=== PATIENT | female | born 1940 | race Caucasian/White ===

== ENCOUNTER 2017-12-19 23:02 | Inpatient (IN) | payer MEDICARE, MEDICAID ==
[2017-12-19 23:43] VITALS: BP 99/35
[2017-12-20] MEDS: INSULIN ASPART SLIDING SCALE 100 UNITS/ML UNIT SUBQ SCH ×4 (00:43→18:09)
[2017-12-20] MEDS: Albuterol/Ipratropium Neb 3 ML AERS HHN SCH ×4 (01:18→19:40)
[2017-12-20 06:14] LABS: % BASOPHILS 0.1 % (0.0-2.0); % EOSINOPHILS 0.1 % (0.0-5.0); % LYMPHOCYTES 8.6 % (20.0-50.0); % MONOCYTES 1.8 % (2.0-10.0); % NEUTROPHILS 89.4 % (40.0-80.0); HEMOGLOBIN 11.3 gm/dL (12-16); LYMPHOCYTE ABSOLUTE 0.5 Th/cmm (1.5-3.0); MEAN CELL VOLUME 84.9 fl (81-100); MEAN CORPUSCULAR HEMOGLOBIN 28.2 pg (27.0-31.0); MEAN CORPUSCULAR HGB CONC 33.3 pg (28.0-36.0); MEAN PLATELET VOLUME 9.4 fl; MONOCYTE ABSOLUTE 0.1 Th/cmm (0.3-1.0); PLATELET COUNT 134 Th/cmm (150-400); RED BLOOD COUNT 4.01 Mil/cmm (3.80-5.20); RED CELL DISTRIBUTION WIDTH 16.7 % (11.5-20.0); WHITE BLOOD COUNT 5.6 Th/cmm (4.8-10.8)
[2017-12-20 06:31] LABS: ALB/GLOB RATIO 1.2 (1.0-1.8); ALBUMIN 3.7 gm/dL (3.7-5.3); ALKALINE PHOSPHATASE 75 U/L (34-104); ANION GAP 11.6 (7.0-16.0); BILIRUBIN,TOTAL 0.5 mg/dL (0.3-1.0); BUN - UREA NITROGEN 21 mg/dL (7-25); CALCIUM SERUM 9.5 mg/dL (8.6-10.3); CARBON DIOXIDE 27.6 mEq/L (21.0-31.0); CHLORIDE 100 mEq/L (98-107); CHOLESTEROL 243 mg/dL (<200); GLUCOSE 302 mg/dL (70-105); HDL -HIGH DENSITY LIPOPROTEIN 45 mg/dL (23-92); POTASSIUM SERUM 4.2 mEq/L (3.5-5.1); SGOT 24 U/L (13-39); SGPT/ALT 23 U/L (7-52); SODIUM SERUM 135 mEq/L (136-145); TOTAL PROTEIN,SERUM 6.9 gm/dL (6.0-8.3); TRIGLYCERIDES 128 mg/dL (<150)
--- NOTE | 2017-12-20 08:44 | Diagnostic Imaging Report ---
CHEST X-RAY: AP view INDICATION: Pneumonia COMPARISON: None FINDINGS: Congestive changes are seen. There may be a small left effusion. Cardiomegaly is noted with atherosclerosis. Degenerative changes of the spine are noted. IMPRESSION: Congestive changes. Pneumonia of the mid to lower lungs is cannot be excluded. Cardiomegaly and atherosclerotic vascular disease.
[2017-12-20] MEDS ORDERED: Albuterol Nebulizer 2.5mg/3mL HHN PRN (10:00)
[2017-12-20] MEDS: Hydrocodone/APAP 10 mg/325 mg Tab PO PRN (11:12)
[2017-12-20] MEDS ORDERED: Insulin Detemir 100 units/mL 10mL Vial SUBQ SCH (11:30)
[2017-12-20] MEDS: Lactulose 10 Gm/15 mL 30mL UDC PO PRN (12:14)
[2017-12-20] MEDS: Pantoprazole 40 mg EC Tab PO SCH (16:16)
--- NOTE | 2017-12-20 16:58 | Internal Medicine Prog Note ---
Internal Medicine Objective - Results Result Diagrams: 12/20/17 05:42 12/20/17 05:42 Recent Labs: Laboratory Last Values WBC 5.6 Th/cmm (4.8-10.8) 12/20/17 05:42 RBC 4.01 Mil/cmm (3.80-5.20) 12/20/17 05:42 Hgb 11.3 gm/dL (12-16) L 12/20/17 05:42 Hct 34.0 % (41.0-60) L 12/20/17 05:42 MCV 84.9 fl (81-100) 12/20/17 05:42 MCH 28.2 pg (27.0-31.0) 12/20/17 05:42 MCHC Differential 33.3 pg (28.0-36.0) 12/20/17 05:42 RDW 16.7 % (11.5-20.0) 12/20/17 05:42 Plt Count 134 Th/cmm (150-400) L 12/20/17 05:42 MPV 9.4 fl 12/20/17 05:42 Neutrophils % 89.4 % (40.0-80.0) H 12/20/17 05:42 Lymphocytes % 8.6 % (20.0-50.0) L 12/20/17 05:42 Monocytes % 1.8 % (2.0-10.0) L 12/20/17 05:42 Eosinophils % 0.1 % (0.0-5.0) 12/20/17 05:42 Basophils % 0.1 % (0.0-2.0) 12/20/17 05:42 Sodium 135 mEq/L (136-145) L 12/20/17 05:42 Potassium 4.2 mEq/L (3.5-5.1) 12/20/17 05:42 Chloride 100 mEq/L (98-107) 12/20/17 05:42 Carbon Dioxide 27.6 mEq/L (21.0-31.0) 12/20/17 05:42 Anion Gap 11.6 (7.0-16.0) 12/20/17 05:42 BUN 21 mg/dL (7-25) 12/20/17 05:42 Creatinine 1.0 mg/dL (0.6-1.2) 12/20/17 05:42 Est GFR ( Amer) TNP 12/20/17 05:42 Est GFR (Non-Af Amer) TNP 12/20/17 05:42 BUN/Creatinine Ratio 21.0 12/20/17 05:42 Glucose 302 mg/dL (70-105) H 12/20/17 05:42 POC Glucose 248 MG/DL (70 - 105) H 12/20/17 16:15 Calcium 9.5 mg/dL (8.6-10.3) 12/20/17 05:42 Total Bilirubin 0.5 mg/dL (0.3-1.0) 12/20/17 05:42 AST 24 U/L (13-39) 12/20/17 05:42 ALT 23 U/L (7-52) 12/20/17 05:42 Alkaline Phosphatase 75 U/L (34-104) 12/20/17 05:42 B-Natriuretic Peptide 399.0 pg/mL (5.0-100.0) H 12/20/17 05:42 Total Protein 6.9 gm/dL (6.0-8.3) 12/20/17 05:42 Albumin 3.7 gm/dL (3.7-5.3) 12/20/17 05:42 Globulin 3.2 gm/dL 12/20/17 05:42 Albumin/Globulin Ratio 1.2 (1.0-1.8) 12/20/17 05:42 Triglycerides 128 mg/dL (<150) 12/20/17 05:42 Cholesterol 243 mg/dL (<200) H 12/20/17 05:42 LDL Cholesterol Direct 160 mg/dL (75-193) 12/20/17 05:42 HDL Cholesterol 45 mg/dL (23-92) 12/20/17 05:42 - Physical Exam Vitals and I&O: Vital Signs Temp 97.7 F 12/20/17 16:00 Pulse 82 12/20/17 16:00 Resp 17 12/20/17 16:52 BP 116/62 12/20/17 16:00 Pulse Ox 96 12/20/17 16:00 Intake & Output 12/19/17 12/20/17 12/20/17 18:59 06:59 18:59 Weight (lbs) 105.687 kg Active Medications: Current Medications Acetaminophen (Tylenol) 650 mg PO Q4H PRN PRN Reason: Pain (Mild) Stop: 02/18/18 08:49 Acetaminophen/Hydrocodone Bitart ([place] 10 Mg/325 Mg) 1 tab PO Q6HR PRN PRN Reason: Pain (Moderate) Stop: 02/18/18 09:55 Last Admin: 12/20/17 11:12 Dose: 1 tab Albuterol Sulfate (Albuterol 2.5mg/3ml Neb Ud) 2.5 mg HHN DAILYRT PRN PRN Reason: wheezing Stop: 02/18/18 09:59 Albuterol/Ipratropium (Duoneb Neb) 3 ml HHN Q6HRT MARIO Stop: 02/18/18 00:59 Last Admin: 12/20/17 12:22 Dose: 3 ml Amiodarone HCl (Cordarone) 100 mg PO DAILY MARIO Stop: 02/19/18 08:59 Artificial Tears (Artificial Tears Ophth Soln) 1 drop EACH EYE DAILY MARIO Stop: 02/19/18 08:59 Aspirin (Ecotrin) 81 mg PO DAILY MARIO Stop: 02/19/18 08:59 Bisacodyl (Dulcolax 5 Mg Ec Tab) 5 mg PO DAILY MARIO Stop: 02/19/18 08:59 Docusate Sodium (Colace) 100 mg PO BID PRN PRN Reason: Constipation Stop: 02/18/18 09:55 Furosemide (Lasix) 40 mg PO DAILY MARIO Stop: 02/19/18 08:59 Gabapentin (Neurontin) 1,200 mg PO TID MARIO Stop: 02/18/18 13:59 Last Admin: 12/20/17 13:27 Dose: 1,200 mg Insulin Aspart (Novolog Insulin Sliding Scale) 0 units SUBQ Q6HR MARIO PRN Reason: Protocol Stop: 02/18/18 00:00 Last Admin: 12/20/17 12:39 Dose: 8 units Insulin Detemir (Levemir Insulin) units SUBQ ACHS MARIO PRN Reason: Protocol Stop: 02/18/18 11:29 Lactulose (Cephulac) 20 gm PO DAILY PRN PRN Reason: Constipation Stop: 02/18/18 09:55 Last Admin: 12/20/17 12:14 Dose: 20 gm Levothyroxine Sodium (Synthroid) 0.125 mg PO QDAC [facility] Stop: 02/19/18 07:29 Metformin HCl (Glucophage) 1,000 mg PO BID MARIO Stop: 02/18/18 16:59 Last Admin: 12/20/17 16:16 Dose: 1,000 mg Miscellaneous (Clonazepam [Klonopin]) 1 tab PO HS MARIO Stop: 02/18/18 20:59 Miscellaneous (Glipizide [Glucotrol]) 1 tab PO BID MARIO Stop: 02/18/18 16:59 Last Admin: 12/20/17 16:16 Dose: Not Given Pantoprazole Sodium (Protonix) 40 mg PO BID MARIO Stop: 02/18/18 16:59 Last Admin: 12/20/17 16:16 Dose: 40 mg Potassium Chloride (Klor-Con) 20 meq PO DAILY [facility] Stop: 02/19/18 08:59 Sitagliptin Phosphate (Januvia) 50 mg PO BID [facility] Stop: 02/18/18 16:59 Last Admin: 12/20/17 16:16 Dose: 50 mg Tramadol HCl (Ultram) 50 mg PO TID [facility] Stop: 02/18/18 13:59 Last Admin: 12/20/17 13:26 Dose: 50 mg Nutritional Asmnt/Malnutr-PDOC - Dietary Evaluation Malnutrition Findings (Please click <Entered> for more info): Nutritional Asmnt/Malnutrition Start: 12/20/17 15: 31 Text: Status: Complete Freq: Document 12/20/17 15:31 LCHENG (Rec: 12/20/17 15:43 [email or web address]) Nutritional Asmnt/Malnutrition Patient General Information Nutritional Screening High Risk Diagnosis PNA Pertinent Medical Hx/Surgical Hx no H&P, not able to obtain Subjective Information BS 302 at admitting noted. pt seen lying in bed with lunch tray in her front. Pt is Maori speaking. Per RN, pt consumed <25% of lunch and refused to eat, complaining stomach pain. PO intake 50% of breakfast this morning. Pt is on insulin noted. Current Diet Order/ Nutrition Support low sodium 2gm Pertinent Medications lasix, novolog, levemir, synthroid, glucophage, protonix, kcal Pertinent Labs 12/20 Na 135, Glucose 302, POC 277-346 12/19 POC 295 Nutritional Hx/Data Height 1.47 m Height (Calculated Centimeters) 147.3 Current Weight (lbs) 105.687 kg Weight (Calculated Kilograms) 105.7 Weight (Calculated Grams) 972204.0 [place] Body Weight 96 Body Mass Index (BMI) 48.6 Weight Status Obese GI Symptoms GI Symptoms None Last BM no record Difficult in: None Skin Integrity/Comment: intact Current %PO Poor (25-49%) Estimated Nutritional Goals BEE in Kcals: Adj wt of IBW Calories/Kcals/Kg 30-35 Kcals Calculated 2934-9493 Protein: Adj wt of IBW Protein g/k-1.2 Protein Calculated 59-71 Fluid: ml 1770-2065ml (1ml/kcal) Nutritional Problem 1. Problem Problem altered nutrition related labs Etiology endocrine dysfunction Signs/Symptoms: Glucose 302, POC 277-346 Malnutrition Alert Protein-Calorie Malnutrition N/A Is there a minimum of two criteria No selected? Query Text:Check all the applicable criteria. A minimum of two criteria are recommended for diagnosis of either severe or non-severe malnutrition. Intervention/Recommendation Comments 1. Recommend adding CCHO-60gm diet d/t hyperglycemia and on insulin. RN notified, will talk to MD. 2. Monitor PO intake, wt, labs and skin integrity 3. F/U as high risk in 2-3 days, 12/22-12/23 Expected Outcomes/Goals Expected Outcomes/Goals 1. PO intake to meet at least 75% of nutritional needs. 2. Wt stability, skin to remain intact, labs to approach WNL.
[2017-12-20] MEDS ORDERED: GLIPIZIDE PO SCH (17:00)
[2017-12-20] MEDS ORDERED: [UNRECOGNIZED DRUG - OTHER] PO SCH (17:00)
[2017-12-20] MEDS ORDERED: SITAGLIPTIN PHOS PO SCH (17:00)
[2017-12-20] MEDS ORDERED: METFORMIN HCL PO SCH (17:00)
--- NOTE | 2017-12-20 19:37 | Consultation ---
DATE OF CONSULTATION: 12/20/2017 PATIENT OF: Dr. Camarillo. HISTORY AND PHYSICAL: This is a 77-year-old morbidly obese female patient, recently had been complaining of shortness of breath, cough with expectoration. The patient was seen in the Emergency Room at [facility]. The patient was found to have pneumonia. The patient also had slightly elevated troponin level. Following this, the patient was transferred to [facility] due to insurance reasons. PAST MEDICAL HISTORY: Hypertension, obstructive sleep apnea, angina, lumbosacral radiculopathy, diabetes mellitus type 2, diabetic CKD stage II, osteoporosis, and morbid obesity. FAMILY HISTORY: Unremarkable. SOCIAL HISTORY: No history of smoking, alcohol abuse. ALLERGIES: No known allergies. PHYSICAL EXAMINATION: VITAL SIGNS: Blood pressure 130/70, pulse 70, and respirations 20. HEAD: Normocephalic. No lumps or bumps. EYES: Pupils are equal and reactive to light. Fundi show AV nicking. Sclerae white. Conjunctivae pink. NECK: Carotid 2+. Normal upstroke. JVD flat. Thyroid not palpable. Lymph nodes not palpable. CHEST: Shows increased AP diameter. No kyphosis or scoliosis. LUNGS: Bilateral bronchovesicular breath sounds. Bilateral wheezing, rhonchi, prolonged expiration. HEART: PMI fifth intercostal space with lateral to midclavicular line. S1 and S2. No S3. Soft S4. Soft systolic murmur. ABDOMEN: Soft. Liver and spleen not palpable. Morbid obesity, no organomegaly. EXTREMITIES: Peripheral pulses 1+. No pedal edema. CLINICAL IMPRESSION: Pneumonia; acute respiratory failure, on BiPAP; hypertension; obstructive sleep apnea; angina; lumbosacral radiculopathy; diabetes mellitus type 2; diabetic CKD stage II; morbid obesity; and osteoporosis. PLAN: We will get troponin level, EKG, and echocardiogram. IV antibiotics and monitor the patient. [facility]# [id number]
[2017-12-20 19:52] LABS: A1C % 7.9 % (4.0-6.0)
[2017-12-20 20:47] LABS: % BASOPHILS 1.1 % (0.0-2.0); % EOSINOPHILS 0.1 % (0.0-5.0); % LYMPHOCYTES 13.5 % (20.0-50.0); % MONOCYTES 5.9 % (2.0-10.0); % NEUTROPHILS 79.4 % (40.0-80.0); BASOPHILE ABSOLUTE 0.1 Th/cumm (0-0.2); HEMATOCRIT 35.2 % (41.0-60); HEMOGLOBIN 11.6 gm/dL (12-16); MEAN CELL VOLUME 85.6 fl (81-100); MEAN CORPUSCULAR HEMOGLOBIN 28.1 pg (27.0-31.0); MEAN CORPUSCULAR HGB CONC 32.8 pg (28.0-36.0); MEAN PLATELET VOLUME 9.3 fl; MONOCYTE ABSOLUTE 0.4 Th/cmm (0.3-1.0); PLATELET COUNT 145 Th/cmm (150-400); RED BLOOD COUNT 4.12 Mil/cmm (3.80-5.20); RED CELL DISTRIBUTION WIDTH 16.5 % (11.5-20.0)
[2017-12-20 20:50] LABS: WHITE BLOOD COUNT 7.5 Th/cmm (4.8-10.8)
[2017-12-20 20:57] LABS: ANION GAP 7.9 (7.0-16.0); BUN - UREA NITROGEN 22 mg/dL (7-25); CALCIUM SERUM 9.8 mg/dL (8.6-10.3); CARBON DIOXIDE 28.8 mEq/L (21.0-31.0); CHLORIDE 102 mEq/L (98-107); CHOLESTEROL 249 mg/dL (<200); CREATININE - SERUM 0.9 mg/dL (0.6-1.2); HDL -HIGH DENSITY LIPOPROTEIN 48 mg/dL (23-92); POTASSIUM SERUM 3.7 mEq/L (3.5-5.1); SODIUM SERUM 135 mEq/L (136-145); TRIGLYCERIDES 137 mg/dL (<150)
[2017-12-20 21:16] LABS: GLUCOSE 191 mg/dL (70-105)
[2017-12-20] MEDS ORDERED: Albuterol/Ipratropium Neb 3 ML AERS HHN PRN (21:49)
[2017-12-21] MEDS: Guaifenesin DM 10 ML UDC PO PRN ×2 (00:52→09:27)
[2017-12-21] MEDS: INSULIN ASPART SLIDING SCALE 100 UNITS/ML UNIT SUBQ SCH ×4 (00:53→17:53)
[2017-12-21] MEDS ORDERED: Piperacillin Sodium/Tazobact 3.375 gm Vial IV ONE (00:56)
[2017-12-21] MEDS: Albuterol/Ipratropium Neb 3 ML AERS HHN SCH ×4 (01:15→19:29)
--- NOTE | 2017-12-21 08:57 | General Progress Note ---
Subjective - Review of Systems Events since last encounter: patient with cough + sob pneumonia Objective - Results Result Diagrams: 12/20/17 20:21 12/20/17 20:21 Recent Labs: Laboratory Last Values WBC 7.5 Th/cmm (4.8-10.8) D 12/20/17 20:21 RBC 4.12 Mil/cmm (3.80-5.20) 12/20/17 20:21 Hgb 11.6 gm/dL (12-16) L 12/20/17 20:21 Hct 35.2 % (41.0-60) L 12/20/17 20:21 MCV 85.6 fl (81-100) 12/20/17 20: MCH 28.1 pg (27.0-31.0) 12/20/17 20: MCHC Differential 32.8 pg (28.0-36.0) 12/20/17 20: RDW 16.5 % (11.5-20.0) 12/20/17 20: Plt Count 145 Th/cmm (150-400) L 12/20/17 20:21 MPV 9.3 fl 12/20/17 20:21 Neutrophils % 79.4 % (40.0-80.0) 12/20/17 20:21 Lymphocytes % 13.5 % (20.0-50.0) L 12/20/17 20: Monocytes % 5.9 % (2.0-10.0) 12/20/17 20:21 Eosinophils % 0.1 % (0.0-5.0) 12/20/17 20: Basophils % 1.1 % (0.0-2.0) 12/20/17 20:21 Sodium 135 mEq/L (136-145) L 12/20/17 20:21 Potassium 3.7 mEq/L (3.5-5.1) 12/20/17 20:21 Chloride 102 mEq/L (98-107) 12/20/17 20:21 Carbon Dioxide 28.8 mEq/L (21.0-31.0) 12/20/17 20:21 Anion Gap 7.9 (7.0-16.0) 12/20/17 20:21 BUN 22 mg/dL (7-25) 12/20/17 20:21 Creatinine 0.9 mg/dL (0.6-1.2) 12/20/17 20:21 Est GFR ( Amer) TNP 12/20/17 20:21 Est GFR (Non-Af Amer) TNP 12/20/17 20:21 BUN/Creatinine Ratio 24.4 12/20/17 20:21 Glucose 191 mg/dL (70-105) H D 12/20/17 20:21 POC Glucose 159 MG/DL (70 - 105) H 12/21/17 00:42 Hemoglobin A1c % 7.9 % (4.0-6.0) H 12/20/17 05:42 Calcium 9.8 mg/dL (8.6-10.3) 12/20/17 20:21 Total Bilirubin 0.5 mg/dL (0.3-1.0) 12/20/17 05:42 AST 24 U/L (13-39) 12/20/17 05:42 ALT 23 U/L (7-52) 12/20/17 05:42 Alkaline Phosphatase 75 U/L (34-104) 12/20/17 05:42 B-Natriuretic Peptide 558.0 pg/mL (5.0-100.0) H 12/21/17 06:02 Total Protein 6.9 gm/dL (6.0-8.3) 12/20/17 05:42 Albumin 3.7 gm/dL (3.7-5.3) 12/20/17 05:42 Globulin 3.2 gm/dL 12/20/17 05:42 Albumin/Globulin Ratio 1.2 (1.0-1.8) 12/20/17 05:42 Triglycerides 137 mg/dL (<150) 12/20/17 20:21 Cholesterol 249 mg/dL (<200) H 12/20/17 20:21 LDL Cholesterol Direct 174 mg/dL (75-193) 12/20/17 20:21 HDL Cholesterol 48 mg/dL (23-92) 12/20/17 20:21 TSH 6.80 uIU/ml (0.34-5.60) H 12/20/17 20:21 - Physical Exam Vitals and I&O: Vital Signs Temp 97.3 F 12/21/17 00:00 Pulse 83 12/21/17 07:25 Resp 22 12/21/17 07:25 BP 114/59 12/21/17 00:00 Pulse Ox 98 12/21/17 07:25 Intake & Output 12/20/17 12/21/17 12/21/17 18:59 06:59 18:59 Intake Total 550 Balance 550 Weight (lbs) 105.687 kg Intake: Oral 550 Other: # Voids 3 # Bowel Movements 0 Active Medications: Current Medications Acetaminophen (Tylenol) 650 mg PO Q4H PRN PRN Reason: Pain (Mild) Stop: 02/18/18 08:49 Last Admin: 12/21/17 06:52 Dose: 650 mg Acetaminophen/Hydrocodone Bitart ([place] 10 Mg/325 Mg) 1 tab PO Q6HR PRN PRN Reason: Pain (Moderate) Stop: 02/18/18 09:55 Last Admin: 12/20/17 11:12 Dose: 1 tab Albuterol Sulfate (Albuterol 2.5mg/3ml Neb Ud) 2.5 mg HHN DAILYRT PRN PRN Reason: wheezing Stop: 02/18/18 09:59 Albuterol/Ipratropium (Duoneb Neb) 3 ml HHN Q6HRT MARIO Stop: 02/18/18 00:59 Last Admin: 12/21/17 07:23 Dose: 3 ml Albuterol/Ipratropium (Duoneb Neb) 3 ml HHN Q2H PRN PRN Reason: Wheezing Stop: 02/18/18 21:48 Amiodarone HCl (Cordarone) 100 mg PO DAILY MARIO Stop: 02/19/18 08:59 Artificial Tears (Artificial Tears Ophth Soln) 1 drop EACH EYE DAILY [facility]IO Stop: 02/19/18 08:59 Aspirin (Ecotrin) 81 mg PO DAILY [facility] Stop: 02/19/18 08:59 Bisacodyl (Dulcolax 5 Mg Ec Tab) 5 mg PO DAILY [facility]IO Stop: 02/19/18 08:59 Clonazepam (Klonopin) 2 mg PO HS MARIO Stop: 02/18/18 20:59 Docusate Sodium (Colace) 100 mg PO BID PRN PRN Reason: Constipation Stop: 02/18/18 09:55 Furosemide (Lasix) 40 mg PO DAILY MARIO Stop: 02/19/18 08:59 Gabapentin (Neurontin) 1,200 mg PO TID MARIO Stop: 02/18/18 13:59 Last Admin: 12/20/17 22:45 Dose: 1,200 mg Glipizide (Glucotrol) 10 mg PO BIDAC [facility] Stop: 02/18/18 16:59 Guaifenesin/Dextromethorphan (Robitussin Dm) 10 ml PO TID PRN PRN Reason: Cough Stop: 02/18/18 21:49 Last Admin: 12/21/17 00:52 Dose: 10 ml Insulin Aspart (Novolog Insulin Sliding Scale) 0 units SUBQ Q6HR MARIO PRN Reason: Protocol Stop: 02/18/18 00:00 Last Admin: 12/21/17 06:54 Dose: 2 units Insulin Detemir (Levemir Insulin) units SUBQ ACHS MARIO PRN Reason: Protocol Stop: 02/18/18 11:29 Lactulose (Cephulac) 20 gm PO DAILY PRN PRN Reason: Constipation Stop: 02/18/18 09:55 Last Admin: 12/20/17 12:14 Dose: 20 gm Levothyroxine Sodium (Synthroid) 0.125 mg PO QDAC [facility] Stop: 02/19/18 07:29 Metformin HCl (Glucophage) 1,000 mg PO BID [facility] Stop: 02/18/18 16:59 Last Admin: 12/20/17 16:16 Dose: 1,000 mg Miscellaneous (Vancomycin Iv Per Pharmacy) 1 ea MC PRN PRN PRN Reason: PROTOCOL Stop: 02/19/18 05:32 Pantoprazole Sodium (Protonix) 40 mg PO BID [facility] Stop: 02/18/18 16:59 Last Admin: 12/20/17 16:16 Dose: 40 mg Potassium Chloride (Klor-Con) 20 meq PO DAILY [facility] Stop: 02/19/18 08:59 Sitagliptin Phosphate (Januvia) 50 mg PO BID [facility] Stop: 02/18/18 16:59 Last Admin: 12/20/17 16:16 Dose: 50 mg Tramadol HCl (Ultram) 50 mg PO TID [facility] Stop: 02/18/18 13:59 Last Admin: 12/20/17 22:45 Dose: 50 mg - Procedures Procedures: Procedures Procedure Code Date ASSISTANCE WITH RESPIRATORY VENTILATION, <24 HRS, CPAP [id number] 12/19/17 POS AIRWAY PRESSURE CPAP 91385 12/19/17 Nutritional Asmnt/Malnutr-PDOC - Dietary Evaluation Malnutrition Findings (Please click <Entered> for more info): Nutritional Asmnt/Malnutrition Start: 12/20/17 15: 31 Text: Status: Complete Freq: Document 12/20/17 15:31 [email or web address] (Rec: 12/20/17 15:43 [email or web address]) Nutritional Asmnt/Malnutrition Patient General Information Nutritional Screening High Risk Diagnosis PNA Pertinent Medical Hx/Surgical Hx no H&P, not able to obtain Subjective Information BS 302 at admitting noted. pt seen lying in bed with lunch tray in her front. Pt is Dive[place] speaking. Per RN, pt consumed <25% of lunch and refused to eat, complaining stomach pain. PO intake 50% of breakfast this morning. Pt is on insulin noted. Current Diet Order/ Nutrition Support low sodium 2gm Pertinent Medications lasix, novolog, levemir, synthroid, glucophage, protonix, kcal Pertinent Labs 12/20 Na 135, Glucose 302, POC 277-346 12/19 POC 295 Nutritional Hx/Data Height 1.47 m Height (Calculated Centimeters) 147.3 Current Weight (lbs) 105.687 kg Weight (Calculated Kilograms) 105.7 Weight (Calculated Grams) 899121.0 [place] Body Weight 96 Body Mass Index (BMI) 48.6 Weight Status Obese GI Symptoms GI Symptoms None Last BM no record Difficult in: None Skin Integrity/Comment: intact Current %PO Poor (25-49%) Estimated Nutritional Goals BEE in Kcals: Adj wt of IBW Calories/Kcals/Kg 30-35 Kcals Calculated 5624-7913 Protein: Adj wt of IBW Protein g/k-1.2 Protein Calculated 59-71 Fluid: ml 1770-2065ml (1ml/kcal) Nutritional Problem 1. Problem Problem altered nutrition related labs Etiology endocrine dysfunction Signs/Symptoms: Glucose 302, POC 277-346 Malnutrition Alert Protein-Calorie Malnutrition N/A Is there a minimum of two criteria No selected? Query Text:Check all the applicable criteria. A minimum of two criteria are recommended for diagnosis of either severe or non-severe malnutrition. Intervention/Recommendation Comments 1. Recommend adding CCHO-60gm diet d/t hyperglycemia and on insulin. RN notified, will talk to . 2. Monitor PO intake, wt, labs and skin integrity 3. F/U as high risk in 2-3 days, 12/22-12/23 Expected Outcomes/Goals Expected Outcomes/Goals 1. PO intake to meet at least 75% of nutritional needs. 2. Wt stability, skin to remain intact, labs to approach WNL.
[2017-12-21 09:02] LABS: % BASOPHILS 0.1 % (0.0-2.0); % EOSINOPHILS 0.5 % (0.0-5.0); % LYMPHOCYTES 16.3 % (20.0-50.0); % MONOCYTES 5.7 % (2.0-10.0); % NEUTROPHILS 77.4 % (40.0-80.0); HEMATOCRIT 33.8 % (41.0-60); LYMPHOCYTE ABSOLUTE 1.2 Th/cmm (1.5-3.0); MEAN CELL VOLUME 85.1 fl (81-100); MEAN CORPUSCULAR HEMOGLOBIN 27.6 pg (27.0-31.0); MEAN CORPUSCULAR HGB CONC 32.4 pg (28.0-36.0); MEAN PLATELET VOLUME 10.2 fl; MONOCYTE ABSOLUTE 0.4 Th/cmm (0.3-1.0); NEUTROPHILE ABSOLUTE 5.7 Th/cmm (1.8-8.0); PLATELET COUNT 147 Th/cmm (150-400); RED BLOOD COUNT 3.97 Mil/cmm (3.80-5.20); RED CELL DISTRIBUTION WIDTH 16.8 % (11.5-20.0); WHITE BLOOD COUNT 7.3 Th/cmm (4.8-10.8)
[2017-12-21 09:14] LABS: BUN - UREA NITROGEN 23 mg/dL (7-25); CALCIUM SERUM 9.7 mg/dL (8.6-10.3); CARBON DIOXIDE 28.1 mEq/L (21.0-31.0); CHLORIDE 101 mEq/L (98-107); GLUCOSE 150 mg/dL (70-105); POTASSIUM SERUM 4.1 mEq/L (3.5-5.1); SODIUM SERUM 139 mEq/L (136-145)
[2017-12-21] MEDS: Pantoprazole 40 mg EC Tab PO SCH ×2 (09:21→16:22)
[2017-12-21] MEDS: Potassium Chloride 20 mEq ER Tab PO SCH (09:21)
[2017-12-21] MEDS: Polyvinyl Alcohol Ophth Soln 15 mL Bottle EACH EYE SCH (09:28)
[2017-12-21] MEDS: Levothyroxine 0.125 Mg Tab PO SCH (11:00)
[2017-12-21] MEDS: Hydrocodone/APAP 10 mg/325 mg Tab PO PRN (12:50)
[2017-12-21] MEDS: Lactulose 10 Gm/15 mL 30mL UDC PO PRN (12:50)
--- NOTE | 2017-12-21 13:59 | Internal Medicine Prog Note ---
Internal Medicine Subjective - Subjective Service Date: 12/21/17 ([id number] [facility] dictated) Internal Medicine Objective - Results Result Diagrams: 12/21/17 06:02 12/21/17 06:02 Recent Labs: Laboratory Last Values WBC 7.3 Th/cmm (4.8-10.8) 12/21/17 06:02 RBC 3.97 Mil/cmm (3.80-5.20) 12/21/17 06:02 Hgb 11.0 gm/dL (12-16) L 12/21/17 06:02 Hct 33.8 % (41.0-60) L 12/21/17 06:02 MCV 85.1 fl (81-100) 12/21/17 06:02 MCH 27.6 pg (27.0-31.0) 12/21/17 06:02 MCHC Differential 32.4 pg (28.0-36.0) 12/21/17 06:02 RDW 16.8 % (11.5-20.0) 12/21/17 06:02 Plt Count 147 Th/cmm (150-400) L 12/21/17 06:02 MPV 10.2 fl 12/21/17 06:02 Neutrophils % 77.4 % (40.0-80.0) 12/21/17 06:02 Lymphocytes % 16.3 % (20.0-50.0) L 12/21/17 06:02 Monocytes % 5.7 % (2.0-10.0) 12/21/17 06:02 Eosinophils % 0.5 % (0.0-5.0) 12/21/17 06:02 Basophils % 0.1 % (0.0-2.0) 12/21/17 06:02 Sodium 139 mEq/L (136-145) 12/21/17 06:02 Potassium 4.1 mEq/L (3.5-5.1) 12/21/17 06:02 Chloride 101 mEq/L (98-107) 12/21/17 06:02 Carbon Dioxide 28.1 mEq/L (21.0-31.0) 12/21/17 06:02 Anion Gap 14.0 (7.0-16.0) 12/21/17 06:02 BUN 23 mg/dL (7-25) 12/21/17 06:02 Creatinine 1.0 mg/dL (0.6-1.2) 12/21/17 06:02 Est GFR ( Amer) TNP 12/21/17 06:02 Est GFR (Non-Af Amer) TNP 12/21/17 06:02 BUN/Creatinine Ratio 23.0 12/21/17 06:02 Glucose 150 mg/dL (70-105) H 12/21/17 06:02 POC Glucose 241 MG/DL (70 - 105) H 12/21/17 11:01 Hemoglobin A1c % 7.9 % (4.0-6.0) H 12/20/17 05:42 Calcium 9.7 mg/dL (8.6-10.3) 12/21/17 06:02 Total Bilirubin 0.5 mg/dL (0.3-1.0) 12/20/17 05:42 AST 24 U/L (13-39) 12/20/17 05:42 ALT 23 U/L (7-52) 12/20/17 05:42 Alkaline Phosphatase 75 U/L (34-104) 12/20/17 05:42 Troponin I 0.08 ng/mL (0.01-0.05) H* 12/21/17 06:02 B-Natriuretic Peptide 558.0 pg/mL (5.0-100.0) H 12/21/17 06:02 Total Protein 6.9 gm/dL (6.0-8.3) 12/20/17 05:42 Albumin 3.7 gm/dL (3.7-5.3) 12/20/17 05:42 Globulin 3.2 gm/dL 12/20/17 05:42 Albumin/Globulin Ratio 1.2 (1.0-1.8) 12/20/17 05:42 Triglycerides 137 mg/dL (<150) 12/20/17 20:21 Cholesterol 249 mg/dL (<200) H 12/20/17 20:21 LDL Cholesterol Direct 174 mg/dL (75-193) 12/20/17 20:21 HDL Cholesterol 48 mg/dL (23-92) 12/20/17 20:21 TSH 6.80 uIU/ml (0.34-5.60) H 12/20/17 20:21 - Physical Exam Vitals and I&O: Vital Signs Temp 98.7 F 12/21/17 11:57 Pulse 84 12/21/17 13:20 Resp 20 12/21/17 13:20 BP 115/63 12/21/17 11:57 Pulse Ox 97 12/21/17 13:20 Intake & Output 12/20/17 12/21/17 12/21/17 18:59 06:59 18:59 Intake Total 550 Balance 550 Weight (lbs) 233 lb Intake: Oral 550 Other: # Voids 3 # Bowel Movements 0 Active Medications: Current Medications Acetaminophen (Tylenol) 650 mg PO Q4H PRN PRN Reason: Pain (Mild) Stop: 02/18/18 08:49 Last Admin: 12/21/17 06:52 Dose: 650 mg Acetaminophen/Hydrocodone Bitart ([place] 10 Mg/325 Mg) 1 tab PO Q6HR PRN PRN Reason: Pain (Moderate) Stop: 02/18/18 09:55 Last Admin: 12/21/17 12:50 Dose: 1 tab Albuterol Sulfate (Albuterol 2.5mg/3ml Neb Ud) 2.5 mg HHN DAILYRT PRN PRN Reason: wheezing Stop: 02/18/18 09:59 Albuterol/Ipratropium (Duoneb Neb) 3 ml HHN Q6HRT [facility] Stop: 02/18/18 00:59 Last Admin: 12/21/17 13:19 Dose: 3 ml Albuterol/Ipratropium (Duoneb Neb) 3 ml HHN Q2H PRN PRN Reason: Wheezing Stop: 02/18/18 21:48 Amiodarone HCl (Cordarone) 100 mg PO DAILY [facility] Stop: 02/19/18 08:59 Last Admin: 12/21/17 09:21 Dose: 100 mg Artificial Tears (Artificial Tears Ophth Soln) 1 drop EACH EYE DAILY [facility] Stop: 02/19/18 08:59 Last Admin: 12/21/17 09:28 Dose: 1 drop Aspirin (Ecotrin) 81 mg PO DAILY [facility] Stop: 02/19/18 08:59 Last Admin: 12/21/17 09:20 Dose: 81 mg Bisacodyl (Dulcolax 5 Mg Ec Tab) 5 mg PO DAILY [facility] Stop: 02/19/18 08:59 Last Admin: 12/21/17 09:21 Dose: 5 mg Clonazepam (Klonopin) 2 mg PO HS [facility] Stop: 02/18/18 20:59 Docusate Sodium (Colace) 100 mg PO BID PRN PRN Reason: Constipation Stop: 02/18/18 09:55 Furosemide (Lasix) 40 mg PO DAILY [facility] Stop: 02/19/18 08:59 Last Admin: 12/21/17 09:20 Dose: 40 mg Gabapentin (Neurontin) 1,200 mg PO TID [facility] Stop: 02/18/18 13:59 Last Admin: 12/21/17 09:20 Dose: 1,200 mg Glipizide (Glucotrol) 10 mg PO BIDAC [facility] Stop: 02/18/18 16:59 Last Admin: 12/21/17 08:00 Dose: 10 mg Guaifenesin/Dextromethorphan (Robitussin Dm) 10 ml PO TID PRN PRN Reason: Cough Stop: 02/18/18 21:49 Last Admin: 12/21/17 09:27 Dose: 10 ml Vancomycin HCl 1 gm/ Sodium (Chloride) 250 mls @ 165 mls/hr IV Q12H [facility] Stop: 02/19/18 11:59 Last Admin: 12/21/17 12:42 Dose: 165 mls/hr Insulin Aspart (Novolog Insulin Sliding Scale) 0 units SUBQ Q6HR [facility] PRN Reason: Protocol Stop: 02/18/18 00:00 Last Admin: 12/21/17 12:48 Dose: 4 units Insulin Detemir (Levemir Insulin) units SUBQ ACHS [facility] PRN Reason: Protocol Stop: 02/18/18 11:29 Lactulose (Cephulac) 20 gm PO DAILY PRN PRN Reason: Constipation Stop: 02/18/18 09:55 Last Admin: 12/21/17 12:50 Dose: 20 gm Levothyroxine Sodium (Synthroid) 0.125 mg PO QDAC [facility] Stop: 02/19/18 07:29 Last Admin: 12/21/17 11:00 Dose: Not Given Metformin HCl (Glucophage) 1,000 mg PO BID [facility] Stop: 02/18/18 16:59 Last Admin: 12/21/17 09:20 Dose: 1,000 mg Miscellaneous (Vancomycin Iv Per Pharmacy) 1 ea [facility] PRN PRN PRN Reason: PROTOCOL Stop: 02/19/18 05:32 Pantoprazole Sodium (Protonix) 40 mg PO BID [facility] Stop: 02/18/18 16:59 Last Admin: 12/21/17 09:21 Dose: 40 mg Potassium Chloride (Klor-Con) 20 meq PO DAILY [facility] Stop: 02/19/18 08:59 Last Admin: 12/21/17 09:21 Dose: 20 meq Sitagliptin Phosphate (Januvia) 50 mg PO BID [facility] Stop: 02/18/18 16:59 Last Admin: 12/21/17 09:20 Dose: 50 mg Tramadol HCl (Ultram) 50 mg PO TID [facility] Stop: 02/18/18 13:59 Last Admin: 12/21/17 09:20 Dose: 50 mg - Procedures Procedures: Procedures Procedure Code Date ASSISTANCE WITH RESPIRATORY VENTILATION, <24 HRS, CPAP [id number] 12/19/17 POS AIRWAY PRESSURE CPAP 74501 12/19/17 Nutritional Asmnt/Malnutr-PDOC - Dietary Evaluation Malnutrition Findings (Please click <Entered> for more info): Nutritional Asmnt/Malnutrition Start: 12/20/17 15: 31 Text: Status: Complete Freq: Document 12/20/17 15:31 LCHENG (Rec: 12/20/17 15:43 LCHENG [id number]) Nutritional Asmnt/Malnutrition Patient General Information Nutritional Screening High Risk Diagnosis PNA Pertinent Medical Hx/Surgical Hx no H&P, not able to obtain Subjective Information BS 302 at admitting noted. pt seen lying in bed with lunch tray in her front. Pt is Khmer speaking. Per RN, pt consumed <25% of lunch and refused to eat, complaining stomach pain. PO intake 50% of breakfast this morning. Pt is on insulin noted. Current Diet Order/ Nutrition Support low sodium 2gm Pertinent Medications lasix, novolog, levemir, synthroid, glucophage, protonix, kcal Pertinent Labs 12/20 Na 135, Glucose 302, POC 277-346 12/19 POC 295 Nutritional Hx/Data Height 4 ft 10 in Height (Calculated Centimeters) 147.3 Current Weight (lbs) 233 lb Weight (Calculated Kilograms) 105.7 Weight (Calculated Grams) 868041.0 [place] Body Weight 96 Body Mass Index (BMI) 48.6 Weight Status Obese GI Symptoms GI Symptoms None Last BM no record Difficult in: None Skin Integrity/Comment: intact Current %PO Poor (25-49%) Estimated Nutritional Goals BEE in Kcals: Adj wt of IBW Calories/Kcals/Kg 30-35 Kcals Calculated 1128-9503 Protein: Adj wt of IBW Protein g/k-1.2 Protein Calculated 59-71 Fluid: ml 1770-206ml (1ml/kcal) Nutritional Problem 1. Problem Problem altered nutrition related labs Etiology endocrine dysfunction Signs/Symptoms: Glucose 302, POC [id number] Malnutrition Alert Protein-Calorie Malnutrition N/A Is there a minimum of two criteria No selected? Query Text:Check all the applicable criteria. A minimum of two criteria are recommended for diagnosis of either severe or non-severe malnutrition. Intervention/Recommendation Comments 1. Recommend adding CCHO-60gm diet d/t hyperglycemia and on insulin. RN notified, will talk to MD. 2. Monitor PO intake, wt, labs and skin integrity 3. F/U as high risk in 2-3 days, 12/22-12/23 Expected Outcomes/Goals Expected Outcomes/Goals 1. PO intake to meet at least 75% of nutritional needs. 2. Wt stability, skin to remain intact, labs to approach WNL.
--- NOTE | 2017-12-21 15:37 | History & Physical ---
ADMIT DATE: HISTORY OF PRESENT ILLNESS: A 77-year-old female patient. She presented to the [place] [facility] initially with a 3-day history of cough, fever and shortness of breath, was diagnosed to have pneumonia and had also COPD exacerbation and I got a call from them and the patient was transferred to [facility] for continuation of her care. PAST MEDICAL HISTORY: Obstructive sleep apnea, history of diabetes, history of hypertension, history of coronary artery disease, and history of lumbar radiculopathy. ALLERGIES: NOTED IN THE CHART. SOCIAL HISTORY: Does not smoke. REVIEW OF SYSTEMS: Other than shortness of breath, fever for the last several days, everything else was negative. PHYSICAL EXAMINATION: GENERAL: The patient is an elderly female, very obese. She is slightly short of breath, complaining of headache at this time. HEAD: Normal. ENT: Normal. NECK: Supple and nontender. LUNGS: Bilateral rhonchi. CARDIOVASCULAR SYSTEM: S1, S2 heard. ABDOMEN: Soft. Bowel sounds are heard. NEUROLOGIC: The patient is alert, oriented. VITAL SIGNS: Pulse was high and blood pressure was 107/62. LABORATORY DATA: I reviewed her other labs from [place], was normal except potassium was 3.4. DIAGNOSES: Acute respiratory distress, respiratory insufficiency, left lower lobe infiltrate, history of obesity, history of obstructive sleep apnea, history of lumbar radiculopathy, history of neuropathy, history of diabetes, history of organ dysfunction. The patient was admitted and I will go ahead and continue her antibiotics. I will have ID doctor, Dr. Denton see the patient as well as I will have Dr. Kal Denton for Pulmonary. I will follow the patient. JOB# [id number]
--- NOTE | 2017-12-21 16:05 | History & Physical ---
ADMIT DATE: 12/21/2017 CHIEF COMPLAINT: Shortness of breath. HISTORY OF PRESENT ILLNESS: This is a 77-year-old female who has a 2-day history of shortness of breath associated with productive cough with thick greenish secretions. The patient was seen in the Emergency Room at [facility]. Due to insurance purposes, the patient is now admitted here to [facility]. PAST MEDICAL HISTORY: Hypertension, obstructive sleep apnea, angina, lumbosacral radiculopathy, diabetes type 2, diabetic CKD stage 2, osteoporosis, morbid obesity. FAMILY HISTORY: Noncontributory. SOCIAL HISTORY: Denies any alcohol, illicit drug usage or any tobacco smoking. ALLERGIES: No drug allergies. REVIEW OF SYSTEMS: GENERAL: Denies any fevers and chills. CARDIOVASCULAR: Denies chest pain. RESPIRATORY: The patient complains of shortness of breath and productive cough. GASTROINTESTINAL: Denies nausea, vomiting, abdominal pain. GENITOURINARY: Denies increased frequency or dysuria. NEUROLOGIC: No headaches, seizures or syncope. All other systems are reviewed and are negative. PHYSICAL EXAMINATION: This is a 77-year-old female, awake, alert and appears stated age, in no apparent distress. VITAL SIGNS: Temperature 98.7, heart rate 83, blood pressure 115/63, respirations 17, O2 96%. HEENT: Head; normocephalic, atraumatic. NECK: Supple. No mass. LUNGS: Rhonchi bilaterally with some slight wheezes. HEART: No murmurs, no gallops. ABDOMEN: Soft, nontender, nondistended. LABORATORY DATA: WBC 7.3, H and H 11.0 and 32.8, platelet of 147. Sodium 139, potassium 4.1, chloride of 101, BUN 23, creatinine 1.0. Troponin 0.08. DIAGNOSTICS: The patient had a chest x-ray done. Impression is congestive changes and pneumonia of mid to lower lung cannot be excluded, cardiomegaly, atherosclerotic vascular disease. ASSESSMENT: Pneumonia, obstructive sleep apnea on BiPAP, hypertension, morbid obesity. Lumbosacral radiculopathy, elevated troponin, type 2 diabetes, diabetic CKD stage 2, osteoporosis. PLAN: We will get Pulmonology on the case. We will get Cardiology as well, breathing treatments, BiPAP standby. We will continue to follow this patient. [facility]# [id number]
--- NOTE | 2017-12-21 16:46 | Consultation ---
Consult Note - Consult Note Service Date: 12/21/17 Referring Physician: Nela Camarillo Consult Note: PHYSICIAN Consultation Note: Date of Admission: 12/19/17 Purpose of Consultation: Pneumonia. Chief Complaint: Patient DIANA HUMPHREY was admitted to [facility] Telemetry with PNA & TACHYCARDIA. History of Present Illness: The patient is a 77-year-old female with a past medical history of obstructive sleep apnea, diabetes mellitus type 2, CHF, cardiomyopathy, coronary artery disease, hypertension, history of lumbar radiculopathy, and history of cardiac arrhythmias, went to [facility] ER for cough, fever, and shortness of breath. The patient was diagnosed to have pneumonia and COPD exacerbation. The patient was transferred to [facility] for further care. The patient still complains of shortness of breath with improvement in her cough. Antibiotic griggs, the patient was already started on vancomycin and Zosyn. Chest x-ray showed congestive changes, pneumonia of mid to lower lung. Past Medical History: obstructive sleep apnea, diabetes mellitus type 2, CHF, cardiomyopathy, coronary artery disease, hypertension, history of lumbar radiculopathy, and history of cardiac arrhythmias Diagnoses TYPE 2 DIABETES MELLITUS W DIABETIC CHRONIC KIDNEY DISEASE (12/19/17) MORBID (SEVERE) OBESITY DUE TO EXCESS CALORIES (12/19/17) OBSTRUCTIVE SLEEP APNEA (ADULT) (PEDIATRIC) (12/19/17) HYPERTENSIVE CHRONIC KIDNEY DISEASE W STG 1-4/UNSP CHR KDNY (12/19/17) ANGINA PECTORIS, UNSPECIFIED (12/19/17) PNEUMONIA, UNSPECIFIED ORGANISM (12/19/17) ACUTE RESPIRATORY FAILURE, UNSP W HYPOXIA OR HYPERCAPNIA (12/19/17) RADICULOPATHY, LUMBOSACRAL REGION (12/19/17) AGE-RELATED OSTEOPOROSIS W/O CURRENT PATHOLOGICAL FRACTURE (12/19/17) CHRONIC KIDNEY DISEASE, STAGE 2 (MILD) (12/19/17) BODY MASS INDEX (BMI) 50-59.9 , ADULT (12/19/17) Allergies Allergy/AdvReac Type Severity Reaction Status Date / Time No Known Allergies Allergy Verified 12/19/17 23:44 Vital Signs Temp 96.7 F 12/21/17 16:00 Pulse 91 12/21/17 16:00 Resp 17 12/21/17 16:00 BP 116/59 12/21/17 16:00 Pulse Ox 95 12/21/17 16:00 Intake & Output 12/20/17 12/21/17 12/21/17 18:59 06:59 18:59 Intake Total 550 Balance 550 Weight (lbs) 105.687 kg Intake: Oral 550 Other: # Voids 3 # Bowel Movements 0 Laboratory Results - last 24 hr 12/20/17 12/20/17 12/20/17 05:42 20:21 20:21 WBC 7.5 D RBC 4.12 Hgb 11.6 L Hct 35.2 L MCV 85.6 MCH 28.1 MCHC Differential 32.8 RDW 16.5 Plt Count 145 L MPV 9.3 Neutrophils % 79.4 Lymphocytes % 13.5 L Monocytes % 5.9 Eosinophils % 0.1 Basophils % 1.1 Sodium Potassium Chloride Carbon Dioxide Anion Gap BUN Creatinine Est GFR ( Amer) Est GFR (Non-Af Amer) BUN/Creatinine Ratio Glucose POC Glucose Hemoglobin A1c % 7.9 H Calcium Troponin I B-Natriuretic Peptide Triglycerides Cholesterol LDL Cholesterol Direct HDL Cholesterol TSH 6.80 H 12/20/17 12/20/17 12/21/17 20:21 20:21 00:42 WBC RBC Hgb Hct MCV MCH MCHC Differential RDW Plt Count MPV Neutrophils % Lymphocytes % Monocytes % Eosinophils % Basophils % Sodium 135 L Potassium 3.7 Chloride 102 Carbon Dioxide 28.8 Anion Gap 7.9 BUN 22 Creatinine 0.9 Est GFR ( Amer) TNP Est GFR (Non-Af Amer) TNP BUN/Creatinine Ratio 24.4 Glucose 191 H D POC Glucose 159 H Hemoglobin A1c % Calcium 9.8 Troponin I B-Natriuretic Peptide Triglycerides 137 Cholesterol 249 H LDL Cholesterol Direct 174 HDL Cholesterol 48 TSH 12/21/17 12/21/17 12/21/17 06:02 06:02 06:02 WBC 7.3 RBC 3.97 Hgb 11.0 L Hct 33.8 L MCV 85.1 MCH 27.6 MCHC Differential 32.4 RDW 16.8 Plt Count 147 L MPV 10.2 Neutrophils % 77.4 Lymphocytes % 16.3 L Monocytes % 5.7 Eosinophils % 0.5 Basophils % 0.1 Sodium Potassium Chloride Carbon Dioxide Anion Gap BUN Creatinine Est GFR ( Amer) Est GFR (Non-Af Amer) BUN/Creatinine Ratio Glucose POC Glucose Hemoglobin A1c % Calcium Troponin I 0.08 H* B-Natriuretic Peptide 558.0 H Triglycerides Cholesterol LDL Cholesterol Direct HDL Cholesterol TSH 12/21/17 12/21/17 12/21/17 06:02 11:01 16:25 WBC RBC Hgb Hct MCV MCH MCHC Differential RDW Plt Count MPV Neutrophils % Lymphocytes % Monocytes % Eosinophils % Basophils % Sodium 139 Potassium 4.1 Chloride 101 Carbon Dioxide 28.1 Anion Gap 14.0 BUN 23 Creatinine 1.0 Est GFR ( Amer) TNP Est GFR (Non-Af Amer) TNP BUN/Creatinine Ratio 23.0 Glucose 150 H POC Glucose 241 H 172 H Hemoglobin A1c % Calcium 9.7 Troponin I B-Natriuretic Peptide Triglycerides Cholesterol LDL Cholesterol Direct HDL Cholesterol TSH Home Medication Medication Instructions Recorded Type Albuterol Sulfate 1 vial HHN DAILY PRN 12/20/17 History Amiodarone HCl [Amiodarone HCl*] 100 mg PO DAILY 12/20/17 History Aspirin EC [Ecotrin] 1 tab PO DAILY 12/20/17 History Bisacodyl [Dulcolax 5 Mg Ec Tab] 1 tab PO DAILY 12/20/17 History Clonazepam [Klonopin] 1 tab PO HS 12/20/17 History Docusate Sodium [Colace] 1 cap PO BID PRN 12/20/17 History Furosemide [Lasix] 40 mg PO DAILY 12/20/17 History Gabapentin [Neurontin] 1,200 mg PO TID 12/20/17 History Glipizide [Glucotrol] 1 tab PO BID 12/20/17 History Hydrocodone/APAP 10 mg/325 mg 1 tab PO Q6HR PRN 12/20/17 History [[place] 10 mg/325 mg] Insulin Detemir [Levemir] 0 unit SQ PRN 12/20/17 History Lactulose [Generlac] 20 gm PO PRN 12/20/17 History Levothyroxine [Synthroid] 125 mcg PO DAILY 12/20/17 History Pantoprazole [Protonix] 40 mg PO BID 12/20/17 History Polyethylene Glycol/Polyvinyl 1 drop OP DAILY 12/20/17 History [Hypotears Eye Drops] Potassium Chloride ER [Klor-Con] 20 meq PO DAILY 12/20/17 History Sitagliptin Phos/Metformin HCl 1 tab PO BID 12/20/17 History [Janumet 50-1,000 mg Tablet] Tramadol HCl [Ultram] 50 mg PO TID 12/20/17 History Current Medications Generic Name Dose Route Start Last Admin Trade Name Freq PRN Reason Stop Dose Admin Acetaminophen 650 mg 12/20/17 08:50 12/21/17 06:52 Tylenol PO 02/18/18 08:49 650 mg Q4H PRN Administration Pain (Mild) Acetaminophen/Hydrocodone Bitart 1 tab 12/20/17 09:56 12/21/17 12:50 [place] 10 Mg/325 Mg PO 02/18/18 09:55 1 tab Q6HR PRN Administration Pain (Moderate) Albuterol Sulfate 2.5 mg 12/20/17 10:00 Albuterol 2.5mg/3ml Neb Ud [facility] 02/18/18 09:59 DAILYRT PRN wheezing Albuterol/Ipratropium 3 ml 12/20/17 01:00 12/21/17 13:19 Duoneb Neb [facility] 02/18/18 00:59 3 ml Q6HRT MARIO Administration Albuterol/Ipratropium 3 ml 12/20/17 21:49 Duoneb Neb [facility] 02/18/18 21:48 Q2H PRN Wheezing Amiodarone HCl 100 mg 12/21/17 09:00 12/21/17 09:21 Cordarone PO 02/19/18 08:59 100 mg DAILY MARIO Administration Artificial Tears 1 drop 12/21/17 09:00 12/21/17 09:28 Artificial Tears Ophth Soln EACH EYE 02/19/18 08:59 1 drop DAILY [facility] Administration Aspirin 81 mg 12/21/17 09:00 12/21/17 09:20 Ecotrin PO 02/19/18 08:59 81 mg DAILY [facility] Administration Bisacodyl 5 mg 12/21/17 09:00 12/21/17 09:21 Dulcolax 5 Mg Ec Tab PO 02/19/18 08:59 5 mg DAILY [facility] Administration Clonazepam 2 mg 12/20/17 21:00 Klonopin PO 02/18/18 20:59 HS MARIO Docusate Sodium 100 mg 12/20/17 09:56 Colace PO 02/18/18 09:55 BID PRN Constipation Furosemide 40 mg 12/21/17 09:00 12/21/17 09:20 Lasix PO 02/19/18 08:59 40 mg DAILY [facility] Administration Gabapentin 1,200 mg 12/20/17 14:00 12/21/17 14:13 Neurontin PO 02/18/18 13:59 1,200 mg TID [facility]IO Administration Glipizide 10 mg 12/21/17 07:30 12/21/17 16:22 Glucotrol PO 02/18/18 16:59 10 mg BIDAC [facility] Administration Guaifenesin/Dextromethorphan 10 ml 12/20/17 21:50 12/21/17 09:27 Robitussin Dm PO 02/18/18 21:49 10 ml TID PRN Administration Cough Vancomycin HCl 1 gm/ Sodium 250 mls @ 165 mls/hr 12/21/17 12:00 12/21/17 12: 42 Chloride IV 02/19/18 11:59 165 mls/hr Q12H [facility] Administration Piperacillin Sod/Tazobactam 100 mls @ 100 mls/hr 12/21/17 21:00 Sod 4.5 gm/ Sodium Chloride IV 02/19/18 20:59 Q8HR [facility] Doxycycline Hyclate 100 mg/ 100 mls @ 100 mls/hr 12/21/17 16:45 Dextrose IV 02/19/18 16:44 Q12H [facility] Insulin Aspart 0 units 12/20/17 00:00 12/21/17 12:48 Novolog Insulin Sliding Scale SUBQ 02/18/18 00:00 4 units Q6HR MARIO Administration Protocol Insulin Detemir units 12/20/17 11:30 Levemir Insulin SUBQ 02/18/18 11:29 ACHS [facility] Protocol Lactulose 20 gm 12/20/17 09:56 12/21/17 12:50 Cephulac PO 02/18/18 09:55 20 gm DAILY PRN Administration Constipation Levothyroxine Sodium 0.125 mg 12/21/17 07:30 12/21/17 11:00 Synthroid PO 02/19/18 07:29 Not Given QDAC MARIO Metformin HCl 1,000 mg 12/20/17 17:00 12/21/17 16:21 Glucophage PO 02/18/18 16:59 1,000 mg BID MARIO Administration Miscellaneous 1 ea 12/21/17 05:33 Vancomycin Iv Per Pharmacy 02/19/18 05:32 PRN PRN PROTOCOL Pantoprazole Sodium 40 mg 12/20/17 17:00 12/21/17 16:22 Protonix PO 02/18/18 16:59 40 mg BID MARIO Administration Potassium Chloride 20 meq 12/21/17 09:00 12/21/17 09:21 Klor-Con PO 02/19/18 08:59 20 meq DAILY [facility]IO Administration Sitagliptin Phosphate 50 mg 12/20/17 17:00 12/21/17 16:21 Januvia PO 02/18/18 16:59 50 mg BID [facility]IO Administration Tramadol HCl 50 mg 12/20/17 14:00 12/21/17 14:13 Ultram PO 02/18/18 13:59 50 mg TID MARIO Administration Review of Systems: A 12 point ROS was reviewed with the pertinent positive and negatives noted in the HPI. GENERAL: The patient denies any fever at this moment. Denies any chills. Has generalized weakness. HEENT: The patient denies any diplopia, photophobia, or sore throat. RESPIRATORY: The patient complains of cough and shortness of breath. CVS: The patient denies any chest pain or palpitation. GASTROINTESTINAL: The patient denies any nausea, vomiting, diarrhea, or constipation. GENITOURINARY: No dysuria. NEUROLOGIC: No headache, no dizziness, no focal weakness. Social History Smoking Status Never smoker Family Medical History Family Medical History Start: 12/19/17 23: 20 Freq: ONCE Status: Active Document 12/20/17 02:23 [facility] (Rec: 12/20/17 02:23 [facility] KRISTEN-MST -DR1) Family Medical History Mother History Unknown Yes Physical Exam: VITAL SIGNS: Temperature is 96.7 degrees Fahrenheit, pulse 91, respirations 17, blood pressure 116/59. GENERAL: The patient is comfortable lying, in the bed, not in acute distress, morbidly obese. HEENT: Head is normocephalic, atraumatic. Oral cavity moist, pink tongue. Eyes: Pallor is present, no icterus. Pupils PERRLA, EOMI. NECK: Supple. No JVD, no carotid bruit. Trachea midline. CHEST: Bilateral breath sounds, decreased breath sounds. Crackles present. CARDIOVASCULAR: S1, S2 within normal limits. Regular rhythm. No murmur, no gallop. ABDOMEN: Soft, nontender, nondistended. Bowel sounds present. EXTREMITIES: No cyanosis, no clubbing, no edema. NEUROLOGICAL: Alert, awake, oriented x 3. LABORATORY DATA: Current lab shows WBC count is 7300, hemoglobin 11, hematocrit 33.8, platelets are 147,000, neutrophils 77.4%. Sodium 139, potassium 4.1, chloride 101, bicarb is 28, BUN is 23, creatinine 1, glucose of 150. Troponin 0.08. IMAGING STUDIES: Chest x-ray showed congestive changes, pneumonia of mid to lower lung cannot be excluded. Assessment: 1. Pneumonia. 2. Chronic obstructive pulmonary disease exacerbation. 3. Sleep apnea. 4. Obesity. 5. Congestive heart failure. 6. History of arrhythmia. 7. Morbid obesity. Plan: continue vancomycin, resume Zosyn, and start doxycycline. Signed, Adelso Denton M.D. 12/21/020307
[2017-12-22] MEDS: INSULIN ASPART SLIDING SCALE 100 UNITS/ML UNIT SUBQ SCH ×4 (00:18→17:55)
[2017-12-22] MEDS: Albuterol/Ipratropium Neb 3 ML AERS HHN SCH ×4 (02:19→20:24)
--- NOTE | 2017-12-22 04:28 | Consultation ---
DATE OF CONSULTATION: 12/20/2017 REFERRING PHYSICIAN: Dr. Camarillo. REASON FOR CONSULTATION: Pneumonia. HISTORY OF PRESENT ILLNESS: The patient is a 77-year-old female with a past medical history of obstructive sleep apnea, diabetes mellitus type 2, CHF, cardiomyopathy, coronary artery disease, hypertension, history of lumbar radiculopathy, and history of cardiac arrhythmias, went to [facility] ER for cough, fever, and shortness of breath. The patient was diagnosed to have pneumonia and COPD exacerbation. The patient was transferred to [facility] for further care. The patient still complains of shortness of breath with improvement in her cough. Antibiotic griggs, the patient was already started on vancomycin and Zosyn. Chest x-ray showed congestive changes, pneumonia of mid to lower lung. ALLERGIES: NKDA. MEDICATIONS: Per medication reconciliation sheet. Antibiotic griggs, the patient has received vancomycin and Zosyn. SOCIAL HISTORY: The patient lives at home. Denies any smoking, alcohol, or drug use. REVIEW OF SYSTEMS: GENERAL: The patient denies any fever at this moment. Denies any chills. Has generalized weakness. HEENT: The patient denies any diplopia, photophobia, or sore throat. RESPIRATORY: The patient complains of cough and shortness of breath. CVS: The patient denies any chest pain or palpitation. GASTROINTESTINAL: The patient denies any nausea, vomiting, diarrhea, or constipation. GENITOURINARY: No dysuria. NEUROLOGIC: No headache, no dizziness, no focal weakness. PHYSICAL EXAMINATION: VITAL SIGNS: Temperature is 96.7 degrees Fahrenheit, pulse 91, respirations 17, blood pressure 116/59. GENERAL: The patient is comfortable lying, in the bed, not in acute distress, morbidly obese. HEENT: Head is normocephalic, atraumatic. Oral cavity moist, pink tongue. Eyes: Pallor is present, no icterus. Pupils PERRLA, EOMI. NECK: Supple. No JVD, no carotid bruit. Trachea midline. CHEST: Bilateral breath sounds, decreased breath sounds. Crackles present. CARDIOVASCULAR: S1, S2 within normal limits. Regular rhythm. No murmur, no gallop. ABDOMEN: Soft, nontender, nondistended. Bowel sounds present. EXTREMITIES: No cyanosis, no clubbing, no edema. NEUROLOGICAL: Alert, awake, oriented x 3. LABORATORY DATA: Current lab shows WBC count is 7300, hemoglobin 11, hematocrit 33.8, platelets are 147,000, neutrophils 77.4%. Sodium 139, potassium 4.1, chloride 101, bicarb is 28, BUN is 23, creatinine 1, glucose of 150. Troponin 0.08. IMAGING STUDIES: Chest x-ray showed congestive changes, pneumonia of mid to lower lung cannot be excluded. IMPRESSION: 1. Pneumonia. 2. Chronic obstructive pulmonary disease exacerbation. 3. Sleep apnea. 4. Obesity. 5. Congestive heart failure. 6. History of arrhythmia. 7. Morbid obesity. RECOMMENDATIONS: We will continue vancomycin, resume Zosyn, and start doxycycline. JOB# [id number] [facility]ITALGin[facility]
[2017-12-22 06:12] LABS: ANION GAP 10.4 (7.0-16.0); BUN - UREA NITROGEN 18 mg/dL (7-25); CALCIUM SERUM 8.9 mg/dL (8.6-10.3); CARBON DIOXIDE 31.5 mEq/L (21.0-31.0); CHLORIDE 102 mEq/L (98-107); GLUCOSE 125 mg/dL (70-105); POTASSIUM SERUM 3.9 mEq/L (3.5-5.1); SODIUM SERUM 140 mEq/L (136-145)
[2017-12-22] MEDS: Guaifenesin DM 10 ML UDC PO PRN ×2 (07:16→22:14)
[2017-12-22] MEDS: Pantoprazole 40 mg EC Tab PO SCH ×2 (09:48→17:39)
[2017-12-22] MEDS: Potassium Chloride 20 mEq ER Tab PO SCH (09:48)
[2017-12-22] MEDS: Polyvinyl Alcohol Ophth Soln 15 mL Bottle EACH EYE SCH (09:50)
--- NOTE | 2017-12-22 09:53 | Diagnostic Imaging Report ---
Portable chest x-ray HISTORY: Pneumonia Compared with prior exam of December 20, 2017, the heart is enlarged. Patient is rotated. There appears to be increased density in the left lower hemithorax. Findings may be associated pleural fluid. Underlying consolidation and/or atelectasis cannot be excluded. IMPRESSION: 1. Increased density in the left lower hemithorax and may be associated with pleural fluid. Underlying pneumonia and/or atelectasis cannot be excluded. 2. Persistent cardiomegaly with atherosclerotic vascular changes
[2017-12-22] MEDS: Lactulose 10 Gm/15 mL 30mL UDC PO PRN (10:03)
[2017-12-22] MEDS: Levothyroxine 0.125 Mg Tab PO SCH (10:03)
--- NOTE | 2017-12-22 14:40 | Cardiology ---
12/21/[address] Camarillo. M-MODE ECHOCARDIOGRAM: Mitral valve: Anterior leaflet of mitral valve shows decreased excursion, EF velocity. Posterior leaflet of the mitral valve shows decreased excursion. Left ventricular posterior shows increased thickness, decreased excursion. Interventricular septum shows increased thickness, decreased excursion. Hypertrophy of the left ventricle, ejection fraction 45%. Left atrium enlarged 4.6 cm. Aortic root shows normal dimension, normal excursion of aortic leaflets. CONCLUSION: Hypertrophy of the left ventricle, cardiomyopathy, ejection fraction 45%, left atrial enlargement. 2D ECHO: Long axis view showed enlarged left ventricular cavity with decreased ejection fraction. Hypertrophy of the left ventricle. Left atrial enlargement, 4.6 cm. Aortic root shows normal dimension, normal excursion of aortic leaflets. Short axis view of mitral valve normal. Short axis view of aortic valve normal. Apical four chamber view shows hypertrophy of the left ventricle, ejection fraction 45%. Left atrium enlarged. Right ventricular cavity is enlarged. Right atrium enlarged. CONCLUSION: Left atrial enlargement, right atrial enlargement, right ventricle enlargement, cardiomyopathy, ejection fraction 45%, hypertrophy of the left ventricle. Doppler study shows moderate mitral regurgitation, moderate tricuspid regurgitation, right ventricular systolic pressure of 57 mmHg with moderate pulmonary hypertension. JOB# [id number]
[2017-12-22] MEDS ORDERED: Probiotic Screen MC PRN (14:55)
[2017-12-23] MEDS: Albuterol/Ipratropium Neb 3 ML AERS HHN SCH ×4 (01:13→18:50)
[2017-12-23] MEDS: INSULIN ASPART SLIDING SCALE 100 UNITS/ML UNIT SUBQ SCH ×4 (02:44→17:25)
[2017-12-23] MEDS: Guaifenesin DM 10 ML UDC PO PRN ×2 (06:47→21:24)
[2017-12-23] MEDS: Lactobacillus Rhamnosus GG 15 Billion CFU CAP.SPRINK PO SCH (09:01)
[2017-12-23] MEDS: Potassium Chloride 20 mEq ER Tab PO SCH (09:03)
[2017-12-23] MEDS: Pantoprazole 40 mg EC Tab PO SCH ×2 (09:03→16:29)
[2017-12-23] MEDS: Polyvinyl Alcohol Ophth Soln 15 mL Bottle EACH EYE SCH (09:03)
--- NOTE | 2017-12-23 16:25 | Progress Notes ---
DATE: 12/23/2017 SUBJECTIVE: The patient was seen in her room asleep, but easily arousable. Otherwise, the patient appears to be comfortable, in no acute distress. OBJECTIVE: VITAL SIGNS: Temperature 97.6, heart rate 77, respirations 18, blood pressure 109/59, 97% on room air. HEENT: Head is atraumatic and normocephalic. Eyes: Bilateral conjunctivae are clear. Bilateral pupils are equally round and reactive. NECK: Supple. No JVD. CARDIOVASCULAR: S1 and S2, without murmur. PULMONARY: Decreased breath sounds. GASTROINTESTINAL: Soft and nontender without guarding. Positive bowel sounds. MUSCULOSKELETAL: No clubbing. No cyanosis noted. ASSESSMENT: 1. Pneumonia. 2. Chronic obstructive pulmonary disease. 3. Obstructive sleep apnea. 4. Congestive heart failure. 5. Morbid obesity. PLAN: We will continue current IV antibiotics. We will put the patient on BiPAP as needed and to monitor the patient's intake and output. Treatment plans were discussed with the patient's nurse. Treatment plans were discussed with Dr. Camarillo. JOB# [id number]
[2017-12-24] MEDS: INSULIN ASPART SLIDING SCALE 100 UNITS/ML UNIT SUBQ SCH ×4 (00:25→17:03)
[2017-12-24] MEDS: Albuterol/Ipratropium Neb 3 ML AERS HHN SCH ×4 (00:33→18:53)
[2017-12-24] MEDS: Pantoprazole 40 mg EC Tab PO SCH ×2 (08:48→16:54)
[2017-12-24] MEDS: Potassium Chloride 20 mEq ER Tab PO SCH (08:48)
[2017-12-24] MEDS: Polyvinyl Alcohol Ophth Soln 15 mL Bottle EACH EYE SCH (08:49)
[2017-12-24] MEDS: Lactobacillus Rhamnosus GG 15 Billion CFU CAP.SPRINK PO SCH (08:49)
--- NOTE | 2017-12-24 09:11 | General Progress Note ---
Subjective - Review of Systems Events since last encounter: patient comfortable in no distress Objective - Results Result Diagrams: 12/21/17 06:02 12/22/17 05:30 Recent Labs: Laboratory Last Values WBC 7.3 Th/cmm (4.8-10.8) 12/21/17 06:02 RBC 3.97 Mil/cmm (3.80-5.20) 12/21/17 06:02 Hgb 11.0 gm/dL (12-16) L 12/21/17 06:02 Hct 33.8 % (41.0-60) L 12/21/17 06:02 MCV 85.1 fl (81-100) 12/21/17 06:02 MCH 27.6 pg (27.0-31.0) 12/21/17 06:02 MCHC Differential 32.4 pg (28.0-36.0) 12/21/17 06:02 RDW 16.8 % (11.5-20.0) 12/21/17 06:02 Plt Count 147 Th/cmm (150-400) L 12/21/17 06:02 MPV 10.2 fl 12/21/17 06:02 Neutrophils % 77.4 % (40.0-80.0) 12/21/17 06:02 Lymphocytes % 16.3 % (20.0-50.0) L 12/21/17 06:02 Monocytes % 5.7 % (2.0-10.0) 12/21/17 06:02 Eosinophils % 0.5 % (0.0-5.0) 12/21/17 06:02 Basophils % 0.1 % (0.0-2.0) 12/21/17 06:02 Sodium 140 mEq/L (136-145) 12/22/17 05:30 Potassium 3.9 mEq/L (3.5-5.1) 12/22/17 05:30 Chloride 102 mEq/L (98-107) 12/22/17 05:30 Carbon Dioxide 31.5 mEq/L (21.0-31.0) H 12/22/17 05:30 Anion Gap 10.4 (7.0-16.0) 12/22/17 05:30 BUN 18 mg/dL (7-25) 12/22/17 05:30 Creatinine 1.0 mg/dL (0.6-1.2) 12/22/17 05:30 Est GFR ( Amer) TNP 12/22/17 05:30 Est GFR (Non-Af Amer) TNP 12/22/17 05:30 BUN/Creatinine Ratio 18.0 12/22/17 05:30 Glucose 125 mg/dL (70-105) H 12/22/17 05:30 POC Glucose 74 MG/DL (70 - 105) 12/24/17 06:20 Hemoglobin A1c % 7.9 % (4.0-6.0) H 12/20/17 05:42 Calcium 8.9 mg/dL (8.6-10.3) 12/22/17 05:30 Total Bilirubin 0.5 mg/dL (0.3-1.0) 12/20/17 05:42 AST 24 U/L (13-39) 12/20/17 05:42 ALT 23 U/L (7-52) 12/20/17 05:42 Alkaline Phosphatase 75 U/L (34-104) 12/20/17 05:42 Troponin I 0.08 ng/mL (0.01-0.05) H* 12/21/17 06:02 B-Natriuretic Peptide 558.0 pg/mL (5.0-100.0) H 12/21/17 06:02 Total Protein 6.9 gm/dL (6.0-8.3) 12/20/17 05:42 Albumin 3.7 gm/dL (3.7-5.3) 12/20/17 05:42 Globulin 3.2 gm/dL 12/20/17 05:42 Albumin/Globulin Ratio 1.2 (1.0-1.8) 12/20/17 05:42 Triglycerides 137 mg/dL (<150) 12/20/17 20:21 Cholesterol 249 mg/dL (<200) H 12/20/17 20:21 LDL Cholesterol Direct 174 mg/dL (75-193) 12/20/17 20:21 HDL Cholesterol 48 mg/dL (23-92) 12/20/17 20:21 TSH 6.80 uIU/ml (0.34-5.60) H 12/20/17 20:21 Vancomycin Trough 13.6 ug/mL (10-20) 12/22/17 11:27 - Physical Exam Vitals and I&O: Vital Signs Temp 97.9 F 12/24/17 07:52 Pulse 77 12/24/17 08:48 Resp 19 12/24/17 07:52 BP 136/68 12/24/17 08:49 Pulse Ox 98 12/24/17 07:52 Intake & Output 12/23/17 12/24/17 12/24/17 18:59 06:59 18:59 Intake Total 1550 550 Output Total 2 Balance 1548 550 Weight (lbs) 105.687 kg 0 g Intake: Intake, IV Amount 550 550 Doxycycline Hyclate 100 100 100 mg In Dextrose 5% 100 ml @ 100 mls/hr IV Q12H [facility] Rx#:[id number] Piperacillin Sodium/ 200 200 Tazobact 4.5 gm In Sodium Chloride 0.9% 100 ml @ 100 mls/hr IV Q8HR [facility] Rx #:[id number] Vancomycin HCl 1 gm In 250 250 Sodium Chloride 0.9% 250 ml @ 165 mls/hr IV Q12H [facility] Rx#:[id number] Oral 1000 Output: Stool 2 Other: # Voids 4 Active Medications: Current Medications Acetaminophen (Tylenol) 650 mg PO Q4H PRN PRN Reason: Pain (Mild) Stop: 02/18/18 08:49 Last Admin: 12/21/17 06:52 Dose: 650 mg Acetaminophen/Hydrocodone Bitart ([place] 10 Mg/325 Mg) 1 tab PO Q6HR PRN PRN Reason: Pain (Moderate) Stop: 02/18/18 09:55 Last Admin: 12/21/17 12:50 Dose: 1 tab Albuterol/Ipratropium (Duoneb Neb) 3 ml HHN Q6HRT [facility] Stop: 02/18/18 00:59 Last Admin: 12/24/17 06:56 Dose: 3 ml Albuterol/Ipratropium (Duoneb Neb) 3 ml HHN Q2H PRN PRN Reason: Wheezing Stop: 02/18/18 21:48 Last Admin: 12/23/17 05:19 Dose: 3 ml Amiodarone HCl (Cordarone) 100 mg PO DAILY [facility] Stop: 02/19/18 08:59 Last Admin: 12/24/17 08:48 Dose: 100 mg Artificial Tears (Artificial Tears Ophth Soln) 1 drop EACH EYE DAILY [facility] Stop: 02/19/18 08:59 Last Admin: 12/24/17 08:49 Dose: 1 drop Aspirin (Ecotrin) 81 mg PO DAILY [facility] Stop: 02/19/18 08:59 Last Admin: 12/24/17 08:48 Dose: 81 mg Bisacodyl (Dulcolax 5 Mg Ec Tab) 5 mg PO DAILY [facility] Stop: 02/19/18 08:59 Last Admin: 12/24/17 08:48 Dose: 5 mg Bisacodyl (Dulcolax 10 Mg Supp) 10 mg RC DAILY PRN PRN Reason: Constipation Stop: 02/20/18 13:02 Last Admin: 12/22/17 15:47 Dose: 10 mg Clonazepam (Klonopin) 2 mg PO HS [facility]IO Stop: 02/18/18 20:59 Last Admin: 12/23/17 21:24 Dose: 2 mg Docusate Sodium (Colace) 100 mg PO BID PRN PRN Reason: Constipation Stop: 02/18/18 09:55 Furosemide (Lasix) 40 mg PO DAILY [facility]IO Stop: 02/19/18 08:59 Last Admin: 12/24/17 08:49 Dose: 40 mg Gabapentin (Neurontin) 1,200 mg PO TID [facility]IO Stop: 02/18/18 13:59 Last Admin: 12/24/17 08:47 Dose: 1,200 mg Glipizide (Glucotrol) 10 mg PO BIDAC [facility] Stop: 02/18/18 16:59 Last Admin: 12/24/17 06:55 Dose: Not Given Guaifenesin/Dextromethorphan (Robitussin Dm) 10 ml PO TID PRN PRN Reason: Cough Stop: 02/18/18 21:49 Last Admin: 12/23/17 21:24 Dose: 10 ml Vancomycin HCl 1 gm/ Sodium (Chloride) 250 mls @ 165 mls/hr IV Q12H [facility] Stop: 02/19/18 11:59 Last Infusion: 12/24/17 02:00 Dose: Infused Piperacillin Sod/Tazobactam (Sod 4.5 gm/ Sodium Chloride) 100 mls @ 100 mls/hr IV Q8HR [facility] Stop: 02/19/18 20:59 Last Infusion: 12/24/17 06:55 Dose: Infused Doxycycline Hyclate 100 mg/ (Dextrose) 100 mls @ 100 mls/hr IV Q12H [facility] Stop: 02/19/18 22:29 Last Infusion: 12/23/17 23:27 Dose: Infused Insulin Aspart (Novolog Insulin Sliding Scale) 0 units SUBQ Q6HR [facility] PRN Reason: Protocol Stop: 02/18/18 00:00 Last Admin: 12/24/17 06:21 Dose: Not Given Lactobacillus Rhamnosus (Culturelle 15b) 1 each PO DAILY [facility]IO Stop: 02/21/18 08:59 Last Admin: 12/24/17 08:49 Dose: 1 each Lactulose (Cephulac) 20 gm PO DAILY PRN PRN Reason: Constipation Stop: 02/18/18 09:55 Last Admin: 12/22/17 10:03 Dose: 20 gm Levothyroxine Sodium 0.025 mg/ (Levothyroxine Sodium 0.1 mg) 0.125 mg PO QDAC [facility]IO Stop: 02/20/18 11:59 Last Admin: 12/24/17 06:54 Dose: 0.125 mg Metformin HCl (Glucophage) 1,000 mg PO BIDWM [facility] Stop: 02/18/18 16:59 Last Admin: 12/24/17 08:47 Dose: 1,000 mg Miscellaneous (Vancomycin Iv Per Pharmacy) 1 [facility] PRN PRN PRN Reason: PROTOCOL Stop: 02/19/18 05:32 Miscellaneous (Probiotic Screen) 1 [facility] PRN PRN PRN Reason: PROTOCOL Stop: 02/20/18 14:54 Pantoprazole Sodium (Protonix) 40 mg PO BID [facility]IO Stop: 02/18/18 16:59 Last Admin: 12/24/17 08:48 Dose: 40 mg Potassium Chloride (Klor-Con) 20 meq PO DAILY [facility] Stop: 02/19/18 08:59 Last Admin: 12/24/17 08:48 Dose: 20 meq Sitagliptin Phosphate (Januvia) 50 mg PO BID [facility] Stop: 02/18/18 16:59 Last Admin: 12/24/17 08:47 Dose: 50 mg Tramadol HCl (Ultram) 50 mg PO TID [facility]IO Stop: 02/18/18 13:59 Last Admin: 12/24/17 08:49 Dose: 50 mg - Procedures Procedures: Procedures Procedure Code Date ASSISTANCE WITH RESPIRATORY VENTILATION, <24 HRS, CPAP [id number] 12/19/17 POS AIRWAY PRESSURE CPAP 80098 12/19/17 Nutritional Asmnt/Malnutr-PDOC - Dietary Evaluation Malnutrition Findings (Please click <Entered> for more info): Nutritional Asmnt/Malnutrition Start: 12/20/17 15: 31 Text: Status: Complete Freq: Document 12/20/17 15:31 [email or web address] (Rec: 12/20/17 15:43 [email or web address] [id number]) Nutritional Asmnt/Malnutrition Patient General Information Nutritional Screening High Risk Diagnosis PNA Pertinent Medical Hx/Surgical Hx no H&P, not able to obtain Subjective Information BS 302 at admitting noted. pt seen lying in bed with lunch tray in her front. Pt is Syrian speaking. Per RN, pt consumed <25% of lunch and refused to eat, complaining stomach pain. PO intake 50% of breakfast this morning. Pt is on insulin noted. Current Diet Order/ Nutrition Support low sodium 2gm Pertinent Medications lasix, novolog, levemir, synthroid, glucophage, protonix, kcal Pertinent Labs 12/20 Na 135, Glucose 302, POC 277-346 12/19 POC 295 Nutritional Hx/Data Height 1.47 m Height (Calculated Centimeters) 147.3 Current Weight (lbs) 105.687 kg Weight (Calculated Kilograms) 105.7 Weight (Calculated Grams) 774237.0 [place] Body Weight 96 Body Mass Index (BMI) 48.6 Weight Status Obese GI Symptoms GI Symptoms None Last BM no record Difficult in: None Skin Integrity/Comment: intact Current %PO Poor (25-49%) Estimated Nutritional Goals BEE in Kcals: Adj wt of IBW Calories/Kcals/Kg 30-35 Kcals Calculated 1805-4064 Protein: Adj wt of IBW Protein g/k-1.2 Protein Calculated 59-71 Fluid: ml 1770-2065ml (1ml/kcal) Nutritional Problem 1. Problem Problem altered nutrition related labs Etiology endocrine dysfunction Signs/Symptoms: Glucose 302, POC [id number] Malnutrition Alert Protein-Calorie Malnutrition N/A Is there a minimum of two criteria No selected? Query Text:Check all the applicable criteria. A minimum of two criteria are recommended for diagnosis of either severe or non-severe malnutrition. Intervention/Recommendation Comments 1. Recommend adding CCHO-60gm diet d/t hyperglycemia and on insulin. RN notified, will talk to MD. 2. Monitor PO intake, wt, labs and skin integrity 3. F/U as high risk in 2-3 days, 12/22-12/23 Expected Outcomes/Goals Expected Outcomes/Goals 1. PO intake to meet at least 75% of nutritional needs. 2. Wt stability, skin to remain intact, labs to approach WNL.
[2017-12-24] MEDS: Vancomycin HCl 1.5 GM in Sodium Chloride 0.9% 500 ML IV SCH (13:03)
--- NOTE | 2017-12-24 15:41 | Infectious Disease Prog Note ---
Infectious Disease Subjective - Review of Systems Service Date: 12/24/17 Subjective: There is no new change, no fever. Still short of breath + Infectious Disease Objective - Results Result Diagrams: 12/21/17 06:02 12/22/17 05:30 Recent Labs: Laboratory Last Values WBC 7.3 Th/cmm (4.8-10.8) 12/21/17 06:02 RBC 3.97 Mil/cmm (3.80-5.20) 12/21/17 06:02 Hgb 11.0 gm/dL (12-16) L 12/21/17 06:02 Hct 33.8 % (41.0-60) L 12/21/17 06:02 MCV 85.1 fl (81-100) 12/21/17 06:02 MCH 27.6 pg (27.0-31.0) 12/21/17 06:02 MCHC Differential 32.4 pg (28.0-36.0) 12/21/17 06:02 RDW 16.8 % (11.5-20.0) 12/21/17 06:02 Plt Count 147 Th/cmm (150-400) L 12/21/17 06:02 MPV 10.2 fl 12/21/17 06:02 Neutrophils % 77.4 % (40.0-80.0) 12/21/17 06:02 Lymphocytes % 16.3 % (20.0-50.0) L 12/21/17 06:02 Monocytes % 5.7 % (2.0-10.0) 12/21/17 06:02 Eosinophils % 0.5 % (0.0-5.0) 12/21/17 06:02 Basophils % 0.1 % (0.0-2.0) 12/21/17 06:02 Sodium 140 mEq/L (136-145) 12/22/17 05:30 Potassium 3.9 mEq/L (3.5-5.1) 12/22/17 05:30 Chloride 102 mEq/L (98-107) 12/22/17 05:30 Carbon Dioxide 31.5 mEq/L (21.0-31.0) H 12/22/17 05:30 Anion Gap 10.4 (7.0-16.0) 12/22/17 05:30 BUN 18 mg/dL (7-25) 12/22/17 05:30 Creatinine 1.0 mg/dL (0.6-1.2) 12/22/17 05:30 Est GFR ( Amer) TNP 12/22/17 05:30 Est GFR (Non-Af Amer) TNP 12/22/17 05:30 BUN/Creatinine Ratio 18.0 12/22/17 05:30 Glucose 125 mg/dL (70-105) H 12/22/17 05:30 POC Glucose 123 MG/DL (70 - 105) H 12/24/17 11:26 Hemoglobin A1c % 7.9 % (4.0-6.0) H 12/20/17 05:42 Calcium 8.9 mg/dL (8.6-10.3) 12/22/17 05:30 Total Bilirubin 0.5 mg/dL (0.3-1.0) 12/20/17 05:42 AST 24 U/L (13-39) 12/20/17 05:42 ALT 23 U/L (7-52) 12/20/17 05:42 Alkaline Phosphatase 75 U/L (34-104) 12/20/17 05:42 Troponin I 0.08 ng/mL (0.01-0.05) H* 12/21/17 06:02 B-Natriuretic Peptide 558.0 pg/mL (5.0-100.0) H 12/21/17 06:02 Total Protein 6.9 gm/dL (6.0-8.3) 12/20/17 05:42 Albumin 3.7 gm/dL (3.7-5.3) 12/20/17 05:42 Globulin 3.2 gm/dL 12/20/17 05:42 Albumin/Globulin Ratio 1.2 (1.0-1.8) 12/20/17 05:42 Triglycerides 137 mg/dL (<150) 12/20/17 20:21 Cholesterol 249 mg/dL (<200) H 12/20/17 20:21 LDL Cholesterol Direct 174 mg/dL (75-193) 12/20/17 20:21 HDL Cholesterol 48 mg/dL (23-92) 12/20/17 20:21 TSH 6.80 uIU/ml (0.34-5.60) H 12/20/17 20:21 Vancomycin Trough 23.4 ug/mL (10-20) H 12/24/17 11:10 - Physical Exam Vitals and I&O: Vital Signs Temp 98.2 F 12/24/17 12:01 Pulse 77 12/24/17 12:12 Resp 18 12/24/17 12:12 BP 134/72 12/24/17 12:01 Pulse Ox 96 12/24/17 12:12 Intake & Output 12/23/17 12/24/17 12/24/17 18:59 06:59 18:59 Intake Total 1550 550 Output Total 2 Balance 1548 550 Weight (lbs) 105.687 kg 0 g Intake: Intake, IV Amount 550 550 Doxycycline Hyclate 100 100 100 mg In Dextrose 5% 100 ml @ 100 mls/hr IV Q12H [facility] Rx#:[id number] Piperacillin Sodium/ 200 200 Tazobact 4.5 gm In Sodium Chloride 0.9% 100 ml @ 100 mls/hr IV Q8HR [facility] Rx #:[id number] Vancomycin HCl 1 gm In 250 250 Sodium Chloride 0.9% 250 ml @ 165 mls/hr IV Q12H [facility] Rx#:[id number] Oral 1000 Output: Stool 2 Other: # Voids 4 Active Medications: Current Medications Acetaminophen (Tylenol) 650 mg PO Q4H PRN PRN Reason: Pain (Mild) Stop: 02/18/18 08:49 Last Admin: 12/21/17 06:52 Dose: 650 mg Acetaminophen/Hydrocodone Bitart ([place] 10 Mg/325 Mg) 1 tab PO Q6HR PRN PRN Reason: Pain (Moderate) Stop: 02/18/18 09:55 Last Admin: 12/21/17 12:50 Dose: 1 tab Albuterol/Ipratropium (Duoneb Neb) 3 ml HHN Q6HRT [facility] Stop: 02/18/18 00:59 Last Admin: 12/24/17 12:12 Dose: 3 ml Albuterol/Ipratropium (Duoneb Neb) 3 ml HHN Q2H PRN PRN Reason: Wheezing Stop: 02/18/18 21:48 Last Admin: 12/23/17 05:19 Dose: 3 ml Amiodarone HCl (Cordarone) 100 mg PO DAILY [facility] Stop: 02/19/18 08:59 Last Admin: 12/24/17 08:48 Dose: 100 mg Artificial Tears (Artificial Tears Ophth Soln) 1 drop EACH EYE DAILY [facility] Stop: 02/19/18 08:59 Last Admin: 12/24/17 08:49 Dose: 1 drop Aspirin (Ecotrin) 81 mg PO DAILY [facility] Stop: 02/19/18 08:59 Last Admin: 12/24/17 08:48 Dose: 81 mg Bisacodyl (Dulcolax 5 Mg Ec Tab) 5 mg PO DAILY [facility] Stop: 02/19/18 08:59 Last Admin: 12/24/17 08:48 Dose: 5 mg Bisacodyl (Dulcolax 10 Mg Supp) 10 mg RC DAILY PRN PRN Reason: Constipation Stop: 02/20/18 13:02 Last Admin: 12/22/17 15:47 Dose: 10 mg Clonazepam (Klonopin) 2 mg PO HS [facility] Stop: 02/18/18 20:59 Last Admin: 12/23/17 21:24 Dose: 2 mg Docusate Sodium (Colace) 100 mg PO BID PRN PRN Reason: Constipation Stop: 02/18/18 09:55 Furosemide (Lasix) 40 mg PO DAILY [facility] Stop: 02/19/18 08:59 Last Admin: 12/24/17 08:49 Dose: 40 mg Gabapentin (Neurontin) 1,200 mg PO TID [facility] Stop: 02/18/18 13:59 Last Admin: 12/24/17 13:02 Dose: 1,200 mg Glipizide (Glucotrol) 10 mg PO BIDAC [facility] Stop: 02/18/18 16:59 Last Admin: 12/24/17 06:55 Dose: Not Given Guaifenesin/Dextromethorphan (Robitussin Dm) 10 ml PO TID PRN PRN Reason: Cough Stop: 02/18/18 21:49 Last Admin: 12/23/17 21:24 Dose: 10 ml Piperacillin Sod/Tazobactam (Sod 4.5 gm/ Sodium Chloride) 100 mls @ 100 mls/hr IV Q8HR [facility] Stop: 02/19/18 20:59 Last Admin: 12/24/17 12:54 Dose: 100 mls/hr Doxycycline Hyclate 100 mg/ (Dextrose) 100 mls @ 100 mls/hr IV Q12H [facility] Stop: 02/19/18 22:29 Last Admin: 12/24/17 10:13 Dose: 100 mls/hr Vancomycin HCl 1.5 gm/ Sodium (Chloride) 500 mls @ 250 mls/hr IV Q24H [facility] Stop: 02/22/18 13:59 Last Admin: 12/24/17 13:03 Dose: 250 mls/hr Insulin Aspart (Novolog Insulin Sliding Scale) 0 units SUBQ Q6HR [facility] PRN Reason: Protocol Stop: 02/18/18 00:00 Last Admin: 12/24/17 11:27 Dose: Not Given Lactobacillus Rhamnosus (Culturelle 15b) 1 each PO DAILY [facility] Stop: 02/21/18 08:59 Last Admin: 12/24/17 08:49 Dose: 1 each Lactulose (Cephulac) 20 gm PO DAILY PRN PRN Reason: Constipation Stop: 02/18/18 09:55 Last Admin: 12/22/17 10:03 Dose: 20 gm Levothyroxine Sodium 0.025 mg/ (Levothyroxine Sodium 0.1 mg) 0.125 mg PO QDAC [facility] Stop: 02/20/18 11:59 Last Admin: 12/24/17 06:54 Dose: 0.125 mg Metformin HCl (Glucophage) 1,000 mg PO BIDWM [facility] Stop: 02/18/18 16:59 Last Admin: 12/24/17 08:47 Dose: 1,000 mg Miscellaneous (Vancomycin Iv Per Pharmacy) 1 ea PRN PRN PRN Reason: PROTOCOL Stop: 02/19/18 05:32 Miscellaneous (Probiotic Screen) 1 ea PRN PRN PRN Reason: PROTOCOL Stop: 02/20/18 14:54 Pantoprazole Sodium (Protonix) 40 mg PO BID [facility] Stop: 02/18/18 16:59 Last Admin: 12/24/17 08:48 Dose: 40 mg Potassium Chloride (Klor-Con) 20 meq PO DAILY [facility] Stop: 02/19/18 08:59 Last Admin: 12/24/17 08:48 Dose: 20 meq Sitagliptin Phosphate (Januvia) 50 mg PO BID [facility] Stop: 02/18/18 16:59 Last Admin: 12/24/17 08:47 Dose: 50 mg Tramadol HCl (Ultram) 50 mg PO TID [facility] Stop: 02/18/18 13:59 Last Admin: 12/24/17 13:02 Dose: 50 mg General: no acute distress, well developed, well nourished HEENT: atraumatic, normocephalic, PERRLA, EOMI Neck: supple, no thyromegaly Cardiovascular: S1S2, regular Lungs: clear to auscultation bilaterally, clear to percussion Abdomen: soft, no tender, no distended Extremities: no cyanosis, no clubbing, no edema Neurological: awake, alert, oriented Skin: intact - Procedures Procedures: Procedures Procedure Code Date ASSISTANCE WITH RESPIRATORY VENTILATION, <24 HRS, CPAP [id number] 12/19/17 POS AIRWAY PRESSURE CPAP 54767 12/19/17 Infectious Disease Assmt/Plan - Assessment Assessment: 1. Pneumonia. 2. Chronic obstructive pulmonary disease exacerbation. 3. Sleep apnea. 4. Obesity. 5. Congestive heart failure. 6. History of arrhythmia. 7. Morbid obesity. - Plan Plan: continue vancomycin, Zosyn and doxycycline. Will get CT of Chest. If it can be done may change made to ultrasound the chest on left side. Nutritional Asmnt/Malnutr-PDOC - Dietary Evaluation Malnutrition Findings (Please click <Entered> for more info): Nutritional Asmnt/Malnutrition Start: 12/20/17 15: 31 Text: Status: Complete Freq: Document 12/20/17 15:31 LCHENG (Rec: 12/20/17 15:43 LCHENG [email or web address]) Nutritional Asmnt/Malnutrition Patient General Information Nutritional Screening High Risk Diagnosis PNA Pertinent Medical Hx/Surgical Hx no H&P, not able to obtain Subjective Information BS 302 at admitting noted. pt seen lying in bed with lunch tray in her front. Pt is [place] speaking. Per RN, pt consumed <25% of lunch and refused to eat, complaining stomach pain. PO intake 50% of breakfast this morning. Pt is on insulin noted. Current Diet Order/ Nutrition Support low sodium 2gm Pertinent Medications lasix, novolog, levemir, synthroid, glucophage, protonix, kcal Pertinent Labs 12/20 Na 135, Glucose 302, POC 277-346 12/19 POC 295 Nutritional Hx/Data Height 1.47 m Height (Calculated Centimeters) 147.3 Current Weight (lbs) 105.687 kg Weight (Calculated Kilograms) 105.7 Weight (Calculated Grams) 511022.0 [place] Body Weight 96 Body Mass Index (BMI) 48.6 Weight Status Obese GI Symptoms GI Symptoms None Last BM no record Difficult in: None Skin Integrity/Comment: intact Current %PO Poor (25-49%) Estimated Nutritional Goals BEE in Kcals: Adj wt of IBW Calories/Kcals/Kg 30-35 Kcals Calculated 8055-3226 Protein: Adj wt of IBW Protein g/k-1.2 Protein Calculated 59-71 Fluid: ml 1770-2065ml (1ml/kcal) Nutritional Problem 1. Problem Problem altered nutrition related labs Etiology endocrine dysfunction Signs/Symptoms: Glucose 302, POC 277-346 Malnutrition Alert Protein-Calorie Malnutrition N/A Is there a minimum of two criteria No selected? Query Text:Check all the applicable criteria. A minimum of two criteria are recommended for diagnosis of either severe or non-severe malnutrition. Intervention/Recommendation Comments 1. Recommend adding CCHO-60gm diet d/t hyperglycemia and on insulin. RN notified, will talk to MD. 2. Monitor PO intake, wt, labs and skin integrity 3. F/U as high risk in 2-3 days, 12/22-12/23 Expected Outcomes/Goals Expected Outcomes/Goals 1. PO intake to meet at least 75% of nutritional needs. 2. Wt stability, skin to remain intact, labs to approach WNL.
[2017-12-24] MEDS: Guaifenesin DM 10 ML UDC PO PRN (21:25)
[2017-12-25] MEDS: INSULIN ASPART SLIDING SCALE 100 UNITS/ML UNIT SUBQ SCH ×4 (00:57→17:10)
[2017-12-25] MEDS: Albuterol/Ipratropium Neb 3 ML AERS HHN SCH ×4 (01:35→19:37)
[2017-12-25] MEDS: Hydrocodone/APAP 10 mg/325 mg Tab PO PRN (06:22)
[2017-12-25 08:33] LABS: % BASOPHILS 0.5 % (0.0-2.0); % EOSINOPHILS 1.1 % (0.0-5.0); % LYMPHOCYTES 32.2 % (20.0-50.0); % MONOCYTES 5.5 % (2.0-10.0); % NEUTROPHILS 60.7 % (40.0-80.0); EOSINOPHILE ABSOLUTE 0.1 Th/cmm (0.1-0.4); HEMATOCRIT 33.3 % (41.0-60); HEMOGLOBIN 10.8 gm/dL (12-16); LYMPHOCYTE ABSOLUTE 1.7 Th/cmm (1.5-3.0); MEAN CELL VOLUME 86.5 fl (81-100); MEAN CORPUSCULAR HGB CONC 32.4 pg (28.0-36.0); MEAN PLATELET VOLUME 8.2 fl; MONOCYTE ABSOLUTE 0.3 Th/cmm (0.3-1.0); NEUTROPHILE ABSOLUTE 3.3 Th/cmm (1.8-8.0); PLATELET COUNT 202 Th/cmm (150-400); RED BLOOD COUNT 3.85 Mil/cmm (3.80-5.20); RED CELL DISTRIBUTION WIDTH 16.7 % (11.5-20.0); WHITE BLOOD COUNT 5.4 Th/cmm (4.8-10.8)
[2017-12-25] MEDS: Lactobacillus Rhamnosus GG 15 Billion CFU CAP.SPRINK PO SCH (08:46)
[2017-12-25] MEDS: Potassium Chloride 20 mEq ER Tab PO SCH (08:48)
[2017-12-25] MEDS: Pantoprazole 40 mg EC Tab PO SCH ×2 (08:48→16:41)
[2017-12-25] MEDS: Polyvinyl Alcohol Ophth Soln 15 mL Bottle EACH EYE SCH (09:21)
[2017-12-25] MEDS: Guaifenesin DM 10 ML UDC PO PRN (09:21)
--- NOTE | 2017-12-25 11:10 | Diagnostic Imaging Report ---
CT scan of the chest without intravenous contrast HISTORY: Ammonia, shortness of breath Total DLP equals 475 CTDI equals 12.9 Axial sections were obtained from a level above the clavicles down to level below the diaphragm. The heart is enlarged. There is shift of the heart and mediastinum to the left side. Mild parenchymal density noted in the left lower lobe that may be associated with atelectasis and/or consolidation. There is incomplete visualization of the margins of the left hilum. Right hilar region appears normal. Underlying hilar pathology cannot be excluded. No definite abnormal mediastinal masses. Mild pleural thickening and nonspecific parenchymal changes noted in the right lower hemithorax. Degenerative changes seen to the spine. IMPRESSION: 1. Cardiomegaly without sclerotic vascular changes due to volume loss in the left lower lobe with shift of the heart and mediastinum to the left. Findings result in partial obscuration of the margins of the left hilum. If needed, a CT scan with intravenous contrast would provide for further evaluation of the hilar structures. 2. Nonspecific mild parenchymal changes within the lower lobes of the chest.
--- NOTE | 2017-12-25 11:38 | General Progress Note ---
Subjective - Review of Systems Events since last encounter: no fever + sob in no distress Objective - Results Result Diagrams: 12/25/17 08:28 12/22/17 05:30 Recent Labs: Laboratory Last Values WBC 5.4 Th/cmm (4.8-10.8) 12/25/17 08:28 RBC 3.85 Mil/cmm (3.80-5.20) 12/25/17 08:28 Hgb 10.8 gm/dL (12-16) L 12/25/17 08:28 Hct 33.3 % (41.0-60) L 12/25/17 08:28 MCV 86.5 fl (81-100) 12/25/17 08:28 MCH 28.0 pg (27.0-31.0) 12/25/17 08:28 MCHC Differential 32.4 pg (28.0-36.0) 12/25/17 08:28 RDW 16.7 % (11.5-20.0) 12/25/17 08:28 Plt Count 202 Th/cmm (150-400) 12/25/17 08:28 MPV 8.2 fl 12/25/17 08:28 Neutrophils % 60.7 % (40.0-80.0) 12/25/17 08:28 Lymphocytes % 32.2 % (20.0-50.0) 12/25/17 08:28 Monocytes % 5.5 % (2.0-10.0) 12/25/17 08:28 Eosinophils % 1.1 % (0.0-5.0) 12/25/17 08:28 Basophils % 0.5 % (0.0-2.0) 12/25/17 08:28 Sodium 140 mEq/L (136-145) 12/22/17 05:30 Potassium 3.9 mEq/L (3.5-5.1) 12/22/17 05:30 Chloride 102 mEq/L (98-107) 12/22/17 05:30 Carbon Dioxide 31.5 mEq/L (21.0-31.0) H 12/22/17 05:30 Anion Gap 10.4 (7.0-16.0) 12/22/17 05:30 BUN 18 mg/dL (7-25) 12/22/17 05:30 Creatinine 1.0 mg/dL (0.6-1.2) 12/22/17 05:30 Est GFR ( Amer) TNP 12/22/17 05:30 Est GFR (Non-Af Amer) TNP 12/22/17 05:30 BUN/Creatinine Ratio 18.0 12/22/17 05:30 Glucose 125 mg/dL (70-105) H 12/22/17 05:30 POC Glucose 75 MG/DL (70 - 105) 12/25/17 06:08 Hemoglobin A1c % 7.9 % (4.0-6.0) H 12/20/17 05:42 Calcium 8.9 mg/dL (8.6-10.3) 12/22/17 05:30 Total Bilirubin 0.5 mg/dL (0.3-1.0) 12/20/17 05:42 AST 24 U/L (13-39) 12/20/17 05:42 ALT 23 U/L (7-52) 12/20/17 05:42 Alkaline Phosphatase 75 U/L (34-104) 12/20/17 05:42 Troponin I 0.08 ng/mL (0.01-0.05) H* 12/21/17 06:02 B-Natriuretic Peptide 558.0 pg/mL (5.0-100.0) H 12/21/17 06:02 Total Protein 6.9 gm/dL (6.0-8.3) 12/20/17 05:42 Albumin 3.7 gm/dL (3.7-5.3) 12/20/17 05:42 Globulin 3.2 gm/dL 12/20/17 05:42 Albumin/Globulin Ratio 1.2 (1.0-1.8) 12/20/17 05:42 Triglycerides 137 mg/dL (<150) 12/20/17 20:21 Cholesterol 249 mg/dL (<200) H 12/20/17 20:21 LDL Cholesterol Direct 174 mg/dL (75-193) 12/20/17 20:21 HDL Cholesterol 48 mg/dL (23-92) 12/20/17 20:21 TSH 6.80 uIU/ml (0.34-5.60) H 12/20/17 20:21 Vancomycin Trough 23.4 ug/mL (10-20) H 12/24/17 11:10 - Physical Exam Vitals and I&O: Vital Signs Temp 98.2 F 12/25/17 11:32 Pulse 67 12/25/17 11:32 Resp 17 12/25/17 11:32 BP 112/68 12/25/17 11:32 Pulse Ox 97 12/25/17 11:32 Intake & Output 12/24/17 12/25/17 12/25/17 18:59 06:59 18:59 Intake Total 700 700 240 Balance 700 700 240 Weight (lbs) 103.873 kg 103.873 kg Intake: Intake, IV Amount 700 200 Doxycycline Hyclate 100 100 100 mg In Dextrose 5% 100 ml @ 100 mls/hr IV Q12H [facility] Rx#:[id number] Piperacillin Sodium/ 100 100 Tazobact 4.5 gm In Sodium Chloride 0.9% 100 ml @ 100 mls/hr IV Q8HR [facility] Rx #:[id number] Vancomycin HCl 1.5 gm In 500 Sodium Chloride 0.9% 500 ml @ 250 mls/hr IV Q24H [facility] Rx#:[id number] Oral 500 240 Other: # Voids 4 4 # Bowel Movements 0 0 Stool Characteristics Soft Active Medications: Current Medications Acetaminophen (Tylenol) 650 mg PO Q4H PRN PRN Reason: Pain (Mild) Stop: 02/18/18 08:49 Last Admin: 12/21/17 06:52 Dose: 650 mg Acetaminophen/Hydrocodone Bitart ([place] 10 Mg/325 Mg) 1 tab PO Q6HR PRN PRN Reason: Pain (Moderate) Stop: 02/18/18 09:55 Last Admin: 12/25/17 06:22 Dose: 1 tab Albuterol/Ipratropium (Duoneb Neb) 3 ml HHN Q6HRT [facility] Stop: 02/18/18 00:59 Last Admin: 12/25/17 07:42 Dose: 3 ml Albuterol/Ipratropium (Duoneb Neb) 3 ml HHN Q2H PRN PRN Reason: Wheezing Stop: 02/18/18 21:48 Last Admin: 12/23/17 05:19 Dose: 3 ml Amiodarone HCl (Cordarone) 100 mg PO DAILY [facility] Stop: 02/19/18 08:59 Last Admin: 12/25/17 08:49 Dose: 100 mg Artificial Tears (Artificial Tears Ophth Soln) 1 drop EACH EYE DAILY [facility] Stop: 02/19/18 08:59 Last Admin: 12/25/17 09:21 Dose: 1 drop Aspirin (Ecotrin) 81 mg PO DAILY [facility] Stop: 02/19/18 08:59 Last Admin: 12/25/17 08:47 Dose: 81 mg Benzocaine/Menthol (Cepacol) 1 edgard MM Q6HR PRN PRN Reason: Sore Throat Stop: 02/22/18 16:52 Bisacodyl (Dulcolax 5 Mg Ec Tab) 5 mg PO DAILY [facility] Stop: 02/19/18 08:59 Last Admin: 12/25/17 08:48 Dose: 5 mg Bisacodyl (Dulcolax 10 Mg Supp) 10 mg RC DAILY PRN PRN Reason: Constipation Stop: 02/20/18 13:02 Last Admin: 12/22/17 15:47 Dose: 10 mg Clonazepam (Klonopin) 2 mg PO HS [facility] Stop: 02/18/18 20:59 Last Admin: 12/24/17 21:33 Dose: 2 mg Docusate Sodium (Colace) 100 mg PO BID PRN PRN Reason: Constipation Stop: 02/18/18 09:55 Furosemide (Lasix) 40 mg PO DAILY [facility] Stop: 02/19/18 08:59 Last Admin: 12/25/17 08:48 Dose: 40 mg Gabapentin (Neurontin) 1,200 mg PO TID [facility] Stop: 02/18/18 13:59 Last Admin: 12/25/17 08:46 Dose: 1,200 mg Glipizide (Glucotrol) 10 mg PO BIDAC [facility] Stop: 02/18/18 16:59 Last Admin: 12/25/17 06:56 Dose: Not Given Guaifenesin/Dextromethorphan (Robitussin Dm) 10 ml PO TID PRN PRN Reason: Cough Stop: 02/18/18 21:49 Last Admin: 12/25/17 09:21 Dose: 10 ml Piperacillin Sod/Tazobactam (Sod 4.5 gm/ Sodium Chloride) 100 mls @ 100 mls/hr IV Q8HR [facility] Stop: 02/19/18 20:59 Last Admin: 12/25/17 06:21 Dose: 100 mls/hr Doxycycline Hyclate 100 mg/ (Dextrose) 100 mls @ 100 mls/hr IV Q12H [facility] Stop: 02/19/18 22:29 Last Admin: 12/25/17 10:48 Dose: 100 mls/hr Vancomycin HCl 1.5 gm/ Sodium (Chloride) 500 mls @ 250 mls/hr IV Q24H [facility] Stop: 02/22/18 13:59 Last Infusion: 12/24/17 17:05 Dose: Infused Insulin Aspart (Novolog Insulin Sliding Scale) 0 units SUBQ Q6HR [facility] PRN Reason: Protocol Stop: 02/18/18 00:00 Last Admin: 12/25/17 06:56 Dose: Not Given Lactobacillus Rhamnosus (Culturelle 15b) 1 each PO DAILY [facility] Stop: 02/21/18 08:59 Last Admin: 12/25/17 08:46 Dose: 1 each Lactulose (Cephulac) 20 gm PO DAILY PRN PRN Reason: Constipation Stop: 02/18/18 09:55 Last Admin: 12/22/17 10:03 Dose: 20 gm Levothyroxine Sodium 0.025 mg/ (Levothyroxine Sodium 0.1 mg) 0.125 mg PO QDAC [facility] Stop: 02/20/18 11:59 Last Admin: 12/25/17 06:56 Dose: 0.125 mg Metformin HCl (Glucophage) 1,000 mg PO BIDWM [facility] Stop: 02/18/18 16:59 Last Admin: 12/25/17 08:46 Dose: 1,000 mg Miscellaneous (Vancomycin Iv Per Pharmacy) 1 ea PRN PRN PRN Reason: PROTOCOL Stop: 02/19/18 05:32 Miscellaneous (Probiotic Screen) 1 ea PRN PRN PRN Reason: PROTOCOL Stop: 02/20/18 14:54 Pantoprazole Sodium (Protonix) 40 mg PO BID [facility] Stop: 02/18/18 16:59 Last Admin: 12/25/17 08:48 Dose: 40 mg Potassium Chloride (Klor-Con) 20 meq PO DAILY [facility] Stop: 02/19/18 08:59 Last Admin: 12/25/17 08:48 Dose: 20 meq Sitagliptin Phosphate (Januvia) 50 mg PO BID [facility] Stop: 02/18/18 16:59 Last Admin: 12/25/17 08:49 Dose: 50 mg Tramadol HCl (Ultram) 50 mg PO TID [facility] Stop: 02/18/18 13:59 Last Admin: 12/25/17 08:48 Dose: 50 mg - Procedures Procedures: Procedures Procedure Code Date ASSISTANCE WITH RESPIRATORY VENTILATION, <24 HRS, CPAP [id number] 12/19/17 POS AIRWAY PRESSURE CPAP 09112 12/19/17 Nutritional Asmnt/Malnutr-PDOC - Dietary Evaluation Malnutrition Findings (Please click <Entered> for more info): Nutritional Asmnt/Malnutrition Start: 12/20/17 15: 31 Text: Status: Complete Freq: Document 12/20/17 15:31 LCHENG (Rec: 12/20/17 15:43 LCHENG [email or web address]) Nutritional Asmnt/Malnutrition Patient General Information Nutritional Screening High Risk Diagnosis PNA Pertinent Medical Hx/Surgical Hx no H&P, not able to obtain Subjective Information BS 302 at admitting noted. pt seen lying in bed with lunch tray in her front. Pt is [place] speaking. Per RN, pt consumed <25% of lunch and refused to eat, complaining stomach pain. PO intake 50% of breakfast this morning. Pt is on insulin noted. Current Diet Order/ Nutrition Support low sodium 2gm Pertinent Medications lasix, novolog, levemir, synthroid, glucophage, protonix, kcal Pertinent Labs 12/20 Na 135, Glucose 302, POC 277-346 12/19 POC 295 Nutritional Hx/Data Height 1.47 m Height (Calculated Centimeters) 147.3 Current Weight (lbs) 105.687 kg Weight (Calculated Kilograms) 105.7 Weight (Calculated Grams) 377628.0 [place] Body Weight 96 Body Mass Index (BMI) 48.6 Weight Status Obese GI Symptoms GI Symptoms None Last BM no record Difficult in: None Skin Integrity/Comment: intact Current %PO Poor (25-49%) Estimated Nutritional Goals BEE in Kcals: Adj wt of IBW Calories/Kcals/Kg 30-35 Kcals Calculated 7799-5692 Protein: Adj wt of IBW Protein g/k-1.2 Protein Calculated 59-71 Fluid: ml 1770-2065ml (1ml/kcal) Nutritional Problem 1. Problem Problem altered nutrition related labs Etiology endocrine dysfunction Signs/Symptoms: Glucose 302, POC 277-346 Malnutrition Alert Protein-Calorie Malnutrition N/A Is there a minimum of two criteria No selected? Query Text:Check all the applicable criteria. A minimum of two criteria are recommended for diagnosis of either severe or non-severe malnutrition. Intervention/Recommendation Comments 1. Recommend adding CCHO-60gm diet d/t hyperglycemia and on insulin. RN notified, will talk to MD. 2. Monitor PO intake, wt, labs and skin integrity 3. F/U as high risk in 2-3 days, 12/22-12/23 Expected Outcomes/Goals Expected Outcomes/Goals 1. PO intake to meet at least 75% of nutritional needs. 2. Wt stability, skin to remain intact, labs to approach WNL.
--- NOTE | 2017-12-25 13:50 | Infectious Disease Prog Note ---
Infectious Disease Subjective - Review of Systems Service Date: 12/25/17 Subjective: There is no new change, no fever. Still short of breath + Infectious Disease Objective - Results Result Diagrams: 12/25/17 08:28 12/22/17 05:30 Recent Labs: Laboratory Last Values WBC 5.4 Th/cmm (4.8-10.8) 12/25/17 08:28 RBC 3.85 Mil/cmm (3.80-5.20) 12/25/17 08:28 Hgb 10.8 gm/dL (12-16) L 12/25/17 08:28 Hct 33.3 % (41.0-60) L 12/25/17 08:28 MCV 86.5 fl (81-100) 12/25/17 08:28 MCH 28.0 pg (27.0-31.0) 12/25/17 08:28 MCHC Differential 32.4 pg (28.0-36.0) 12/25/17 08:28 RDW 16.7 % (11.5-20.0) 12/25/17 08:28 Plt Count 202 Th/cmm (150-400) 12/25/17 08:28 MPV 8.2 fl 12/25/17 08:28 Neutrophils % 60.7 % (40.0-80.0) 12/25/17 08:28 Lymphocytes % 32.2 % (20.0-50.0) 12/25/17 08:28 Monocytes % 5.5 % (2.0-10.0) 12/25/17 08:28 Eosinophils % 1.1 % (0.0-5.0) 12/25/17 08:28 Basophils % 0.5 % (0.0-2.0) 12/25/17 08:28 Sodium 140 mEq/L (136-145) 12/22/17 05:30 Potassium 3.9 mEq/L (3.5-5.1) 12/22/17 05:30 Chloride 102 mEq/L (98-107) 12/22/17 05:30 Carbon Dioxide 31.5 mEq/L (21.0-31.0) H 12/22/17 05:30 Anion Gap 10.4 (7.0-16.0) 12/22/17 05:30 BUN 18 mg/dL (7-25) 12/22/17 05:30 Creatinine 1.0 mg/dL (0.6-1.2) 12/22/17 05:30 Est GFR ( Amer) TNP 12/22/17 05:30 Est GFR (Non-Af Amer) TNP 12/22/17 05:30 BUN/Creatinine Ratio 18.0 12/22/17 05:30 Glucose 125 mg/dL (70-105) H 12/22/17 05:30 POC Glucose 141 MG/DL (70 - 105) H 12/25/17 11:43 Hemoglobin A1c % 7.9 % (4.0-6.0) H 12/20/17 05:42 Calcium 8.9 mg/dL (8.6-10.3) 12/22/17 05:30 Total Bilirubin 0.5 mg/dL (0.3-1.0) 12/20/17 05:42 AST 24 U/L (13-39) 12/20/17 05:42 ALT 23 U/L (7-52) 12/20/17 05:42 Alkaline Phosphatase 75 U/L (34-104) 12/20/17 05:42 Troponin I 0.08 ng/mL (0.01-0.05) H* 12/21/17 06:02 B-Natriuretic Peptide 558.0 pg/mL (5.0-100.0) H 12/21/17 06:02 Total Protein 6.9 gm/dL (6.0-8.3) 12/20/17 05:42 Albumin 3.7 gm/dL (3.7-5.3) 12/20/17 05:42 Globulin 3.2 gm/dL 12/20/17 05:42 Albumin/Globulin Ratio 1.2 (1.0-1.8) 12/20/17 05:42 Triglycerides 137 mg/dL (<150) 12/20/17 20:21 Cholesterol 249 mg/dL (<200) H 12/20/17 20:21 LDL Cholesterol Direct 174 mg/dL (75-193) 12/20/17 20:21 HDL Cholesterol 48 mg/dL (23-92) 12/20/17 20:21 TSH 6.80 uIU/ml (0.34-5.60) H 12/20/17 20:21 Vancomycin Trough 23.4 ug/mL (10-20) H 12/24/17 11:10 - Physical Exam Vitals and I&O: Vital Signs Temp 98.2 F 12/25/17 11:32 Pulse 76 12/25/17 13:42 Resp 18 12/25/17 13:42 BP 112/68 12/25/17 11:32 Pulse Ox 96 12/25/17 13:42 Intake & Output 12/24/17 12/25/17 12/25/17 18:59 06:59 18:59 Intake Total 700 700 340 Balance 700 700 340 Weight (lbs) 103.873 kg 103.873 kg Intake: Intake, IV Amount 700 200 100 Doxycycline Hyclate 100 100 100 mg In Dextrose 5% 100 ml @ 100 mls/hr IV Q12H [facility] Rx#:[id number] Piperacillin Sodium/ 100 100 100 Tazobact 4.5 gm In Sodium Chloride 0.9% 100 ml @ 100 mls/hr IV Q8HR [facility] Rx #:[id number] Vancomycin HCl 1.5 gm In 500 Sodium Chloride 0.9% 500 ml @ 250 mls/hr IV Q24H [facility] Rx#:[id number] Oral 500 240 Other: # Voids 4 4 # Bowel Movements 0 0 Stool Characteristics Soft Active Medications: Current Medications Acetaminophen (Tylenol) 650 mg PO Q4H PRN PRN Reason: Pain (Mild) Stop: 02/18/18 08:49 Last Admin: 12/21/17 06:52 Dose: 650 mg Acetaminophen/Hydrocodone Bitart (Spencer 10 Mg/325 Mg) 1 tab PO Q6HR PRN PRN Reason: Pain (Moderate) Stop: 02/18/18 09:55 Last Admin: 12/25/17 06:22 Dose: 1 tab Albuterol/Ipratropium (Duoneb Neb) 3 ml HHN Q6HRT [facility] Stop: 02/18/18 00:59 Last Admin: 12/25/17 13:40 Dose: 3 ml Albuterol/Ipratropium (Duoneb Neb) 3 ml HHN Q2H PRN PRN Reason: Wheezing Stop: 02/18/18 21:48 Last Admin: 12/23/17 05:19 Dose: 3 ml Amiodarone HCl (Cordarone) 100 mg PO DAILY [facility] Stop: 02/19/18 08:59 Last Admin: 12/25/17 08:49 Dose: 100 mg Artificial Tears (Artificial Tears Ophth Soln) 1 drop EACH EYE DAILY [facility] Stop: 02/19/18 08:59 Last Admin: 12/25/17 09:21 Dose: 1 drop Aspirin (Ecotrin) 81 mg PO DAILY [facility] Stop: 02/19/18 08:59 Last Admin: 12/25/17 08:47 Dose: 81 mg Benzocaine/Menthol (Cepacol) 1 edgard MM Q6HR PRN PRN Reason: Sore Throat Stop: 02/22/18 16:52 Bisacodyl (Dulcolax 5 Mg Ec Tab) 5 mg PO DAILY [facility] Stop: 02/19/18 08:59 Last Admin: 12/25/17 08:48 Dose: 5 mg Bisacodyl (Dulcolax 10 Mg Supp) 10 mg RC DAILY PRN PRN Reason: Constipation Stop: 02/20/18 13:02 Last Admin: 12/22/17 15:47 Dose: 10 mg Clonazepam (Klonopin) 2 mg PO HS [facility] Stop: 02/18/18 20:59 Last Admin: 12/24/17 21:33 Dose: 2 mg Docusate Sodium (Colace) 100 mg PO BID PRN PRN Reason: Constipation Stop: 02/18/18 09:55 Furosemide (Lasix) 40 mg PO DAILY [facility] Stop: 02/19/18 08:59 Last Admin: 12/25/17 08:48 Dose: 40 mg Gabapentin (Neurontin) 1,200 mg PO TID [facility] Stop: 02/18/18 13:59 Last Admin: 12/25/17 08:46 Dose: 1,200 mg Glipizide (Glucotrol) 10 mg PO BIDAC [facility] Stop: 02/18/18 16:59 Last Admin: 12/25/17 06:56 Dose: Not Given Guaifenesin/Dextromethorphan (Robitussin Dm) 10 ml PO TID PRN PRN Reason: Cough Stop: 02/18/18 21:49 Last Admin: 12/25/17 09:21 Dose: 10 ml Piperacillin Sod/Tazobactam (Sod 4.5 gm/ Sodium Chloride) 100 mls @ 100 mls/hr IV Q8HR [facility] Stop: 02/19/18 20:59 Last Admin: 12/25/17 13:17 Dose: 100 mls/hr Doxycycline Hyclate 100 mg/ (Dextrose) 100 mls @ 100 mls/hr IV Q12H [facility] Stop: 02/19/18 22:29 Last Admin: 12/25/17 10:48 Dose: 100 mls/hr Vancomycin HCl 1.5 gm/ Sodium (Chloride) 500 mls @ 250 mls/hr IV Q24H [facility] Stop: 02/22/18 13:59 Last Infusion: 12/24/17 17:05 Dose: Infused Insulin Aspart (Novolog Insulin Sliding Scale) 0 units SUBQ Q6HR [facility] PRN Reason: Protocol Stop: 02/18/18 00:00 Last Admin: 12/25/17 11:58 Dose: Not Given Lactobacillus Rhamnosus (Culturelle 15b) 1 each PO DAILY [facility] Stop: 02/21/18 08:59 Last Admin: 12/25/17 08:46 Dose: 1 each Lactulose (Cephulac) 20 gm PO DAILY PRN PRN Reason: Constipation Stop: 02/18/18 09:55 Last Admin: 12/22/17 10:03 Dose: 20 gm Levothyroxine Sodium 0.025 mg/ (Levothyroxine Sodium 0.1 mg) 0.125 mg PO QDAC [facility] Stop: 02/20/18 11:59 Last Admin: 12/25/17 06:56 Dose: 0.125 mg Metformin HCl (Glucophage) 1,000 mg PO BIDWM [facility] Stop: 02/18/18 16:59 Last Admin: 12/25/17 08:46 Dose: 1,000 mg Miscellaneous (Vancomycin Iv Per Pharmacy) 1 ea PRN PRN PRN Reason: PROTOCOL Stop: 02/19/18 05:32 Miscellaneous (Probiotic Screen) 1 ea PRN PRN PRN Reason: PROTOCOL Stop: 02/20/18 14:54 Pantoprazole Sodium (Protonix) 40 mg PO BID [facility] Stop: 02/18/18 16:59 Last Admin: 12/25/17 08:48 Dose: 40 mg Potassium Chloride (Klor-Con) 20 meq PO DAILY [facility] Stop: 02/19/18 08:59 Last Admin: 12/25/17 08:48 Dose: 20 meq Sitagliptin Phosphate (Januvia) 50 mg PO BID [facility] Stop: 02/18/18 16:59 Last Admin: 12/25/17 08:49 Dose: 50 mg Tramadol HCl (Ultram) 50 mg PO TID [facility] Stop: 02/18/18 13:59 Last Admin: 12/25/17 08:48 Dose: 50 mg General: no acute distress, well developed, well nourished HEENT: atraumatic, normocephalic, PERRLA Neck: supple, no thyromegaly Cardiovascular: S1S2, regular Lungs: clear to auscultation bilaterally, clear to percussion, rhonchi Abdomen: soft, no tender, no distended, no mass, no hepatomegaly Extremities: no cyanosis, no clubbing, no edema Neurological: awake, alert, oriented Skin: intact - Procedures Procedures: Procedures Procedure Code Date ASSISTANCE WITH RESPIRATORY VENTILATION, <24 HRS, CPAP [id number] 12/19/17 POS AIRWAY PRESSURE CPAP 75345 12/19/17 Infectious Disease Assmt/Plan - Assessment Assessment: 1. Pneumonia. 2. Chronic obstructive pulmonary disease exacerbation. 3. Sleep apnea. 4. Obesity. 5. Congestive heart failure. 6. History of arrhythmia. 7. Morbid obesity. - Plan Plan: continue vancomycin, Zosyn and doxycycline. Nutritional Asmnt/Malnutr-PDOC - Dietary Evaluation Malnutrition Findings (Please click <Entered> for more info): Nutritional Asmnt/Malnutrition Start: 12/20/17 15: 31 Text: Status: Complete Freq: Document 12/20/17 15:31 LCHENG (Rec: 12/20/17 15:43 LCHENG [email or web address]) Nutritional Asmnt/Malnutrition Patient General Information Nutritional Screening High Risk Diagnosis PNA Pertinent Medical Hx/Surgical Hx no H&P, not able to obtain Subjective Information BS 302 at admitting noted. pt seen lying in bed with lunch tray in her front. Pt is [place] speaking. Per RN, pt consumed <25% of lunch and refused to eat, complaining stomach pain. PO intake 50% of breakfast this morning. Pt is on insulin noted. Current Diet Order/ Nutrition Support low sodium 2gm Pertinent Medications lasix, novolog, levemir, synthroid, glucophage, protonix, kcal Pertinent Labs 12/20 Na 135, Glucose 302, POC 277-346 12/19 POC 295 Nutritional Hx/Data Height 1.47 m Height (Calculated Centimeters) 147.3 Current Weight (lbs) 105.687 kg Weight (Calculated Kilograms) 105.7 Weight (Calculated Grams) 058416.0 [place] Body Weight 96 Body Mass Index (BMI) 48.6 Weight Status Obese GI Symptoms GI Symptoms None Last BM no record Difficult in: None Skin Integrity/Comment: intact Current %PO Poor (25-49%) Estimated Nutritional Goals BEE in Kcals: Adj wt of IBW Calories/Kcals/Kg 30-35 Kcals Calculated 4057-0422 Protein: Adj wt of IBW Protein g/k-1.2 Protein Calculated 59-71 Fluid: ml 1770-2065ml (1ml/kcal) Nutritional Problem 1. Problem Problem altered nutrition related labs Etiology endocrine dysfunction Signs/Symptoms: Glucose 302, POC [id number] Malnutrition Alert Protein-Calorie Malnutrition N/A Is there a minimum of two criteria No selected? Query Text:Check all the applicable criteria. A minimum of two criteria are recommended for diagnosis of either severe or non-severe malnutrition. Intervention/Recommendation Comments 1. Recommend adding CCHO-60gm diet d/t hyperglycemia and on insulin. RN notified, will talk to MD. 2. Monitor PO intake, wt, labs and skin integrity 3. F/U as high risk in 2-3 days, 12/22-12/23 Expected Outcomes/Goals Expected Outcomes/Goals 1. PO intake to meet at least 75% of nutritional needs. 2. Wt stability, skin to remain intact, labs to approach WNL.
[2017-12-25] MEDS: Vancomycin HCl 1.5 GM in Sodium Chloride 0.9% 500 ML IV SCH (15:45)
== END 2017-12-25 21:00 | DRG 177 ==
LOC: TELE 23:02
PROVIDERS: ADMIT Internal Medicine; ATTEND Internal Medicine
PROC: 5A09357 Assistance with Respiratory Ventilation, Less than 24 Consecutive Hours, Continuous Positive Airway Pressure (ICD-10-PCS; principal; 2017-12-20)
DX: J69.0 Pneumonitis due to inhalation of food and vomit (principal); J96.00 Acute respiratory failure, unspecified whether with hypoxia or hypercapnia; I13.0 Hypertensive heart and chronic kidney disease with heart failure and stage 1 through stage 4 chronic kidney disease, or unspecified chronic kidney disease; E11.22 Type 2 diabetes mellitus with diabetic chronic kidney disease; I50.9 Heart failure, unspecified; E66.01 Morbid (severe) obesity due to excess calories; I25.110 Atherosclerotic heart disease of native coronary artery with unstable angina pectoris; I42.9 Cardiomyopathy, unspecified; Z68.43 Body mass index [BMI] 50.0-59.9, adult; J44.1 Chronic obstructive pulmonary disease with (acute) exacerbation; J44.0 Chronic obstructive pulmonary disease with (acute) lower respiratory infection; M81.0 Age-related osteoporosis without current pathological fracture; G47.33 Obstructive sleep apnea (adult) (pediatric); M54.17 Radiculopathy, lumbosacral region; N18.2 Chronic kidney disease, stage 2 (mild); I49.9 Cardiac arrhythmia, unspecified
CPT/HCPCS: 36415-UA; 71045-TC; 71250-TC; 80048-TC; 80053-TC; 80061-TC; 80202-TC; 82948-90; 83036-90; 83880-TC; 84443-TC; 84484-TC; 85025-TC; 93005; 94640; 94660; 94760; J1815; J2543; J3370; J7040; X6118; Z7610